=== PATIENT | male | born 1960 | race Caucasian/White ===

== ENCOUNTER 2018-11-26 11:09 | Emergency (ER) | payer MEDICAID ==
[2018-11-26 11:16] VITALS: BP 140/91
--- NOTE | 2018-11-27 10:44 | ED ---
Lower Extremity - HPI Summary HPI Summary: This patient is a 58-year-old male who presents to the ED after a fall down the stairs 4 days ago. Patient states he was walking down the stairs, tripped and lost his balance and is now endorsing pain to the left ankle and foot. Over the past 4 days, the area has been becoming more swollen as well as ecchymotic. Patient remains ambulatory, however with discomfort. Most of the pain is to the dorsum of the foot as well as to the plantar surface of the foot, however radiates up into the ankle. Denies any pain to the lower extremity otherwise denies any pain to the knee. He has been taking Tylenol at home without relief. He has not elevated the area or ice the area. - History of Current Complaint Chief Complaint: EDExtremityLower Stated Complaint: LEFT FOOT INJURY Time Seen by Provider: 11/26/18 11:48 Hx Obtained From: Patient Mechanism Of Injury: Twisted Onset of Pain: Minutes Onset/Duration: Minutes Severity Initially: Moderate Severity Currently: Moderate Pain Intensity: 9 Pain Scale Used: 0-10 Numeric Timing: Constant Location: Is Discrete @ - left ankle and foot pain Character Of Pain: Aching Associated Signs And Symptoms: Positive: Swelling, Bruising. Negative: Redness Aggravating Factor(s): Standing, Ambulation Alleviating Factor(s): Rest Able to Bear Weight: No - Risk Factors Gout Risk Factors: Negative DVT Risk Factors: Negative Septic Arthritis Risk Factor: Negative - Allergies/Home Medications Allergies/Adverse Reactions: Allergies Allergy/AdvReac Type Severity Reaction Status Date / Time No Known Allergies Allergy Verified 11/26/18 11:15 Home Medications: Home Medications Levothyroxine TAB* [Synthroid TAB*] 125 mcg PO DAILY 11/26/18 [History Confirmed 11/26/18] Quetiapine Fumarate 2 tab PO DAILY 11/26/18 [History Confirmed 11/26/18] Venlafaxine CAP (NF) [Effexor CAP (NF)] 3 tab PO DAILY 11/26/18 [History Confirmed 11/26/18] PMH/Surg Hx/FS Hx/Imm Hx Previously Healthy: Yes - Immunization History Hx Pertussis Vaccination: No Immunizations Up to Date: Yes Infectious Disease History: No Infectious Disease History: Denies: Traveled Outside the [place] in Last 30 Days - Social History Occupation: Unemployed Lives: Alone Alcohol Use: None Hx Substance Use: No Substance Use Type: Reports: None Hx Tobacco Use: Yes Smoking Status (MU): Heavy Every Day Tobacco Smoker Review of Systems Negative: Fever, Chills, Fatigue, Skin Diaphoresis Negative: Palpitations, Chest Pain Negative: Shortness Of Breath, Cough Genitourinary: Negative Positive: no symptoms reported, see HPI Positive: Arthralgia, Myalgia Positive: Bruising All Other Systems Reviewed And Are Negative: Yes Physical Exam Triage Information Reviewed: Yes Vital Signs On Initial Exam: Initial Vitals Temp Pulse Resp BP Pulse Ox 99.4 F 86 14 140/91 98 11/26/18 11:12 11/26/18 11:12 11/26/18 11:12 11/26/18 11:12 11/26/18 11:12 Vital Signs Reviewed: Yes Appearance: Positive: Well-Appearing, Well-Nourished Skin: Positive: Warm, Skin Color Reflects Adequate Perfusion, Other - ecchymosis Head/Face: Positive: Normal Head/Face Inspection Eyes: Positive: EOMI, BAKARI, Conjunctiva Clear Neck: Positive: Supple, No Lymphadenopathy Respiratory/Lung Sounds: Positive: Clear to Auscultation, Breath Sounds Present Cardiovascular: Positive: RRR, Pulses are Symmetrical in both Upper and Lower Extremities Musculoskeletal: Positive: Normal, Strength/ROM Intact Neurological: Positive: Speech Normal Psychiatric: Positive: Affect/Mood Appropriate AVPU Assessment: Alert Procedures - Sedation Patient Received Moderate/Deep Sedation with Procedure: No Diagnostics - Vital Signs Vital Signs Temp Pulse Resp BP Pulse Ox 11/26/18 11:12 99.4 F 86 14 140/91 98 - Laboratory Lab Statement: Any lab studies that have been ordered have been reviewed, and results considered in the medical decision making process. Lower Extremity Course/Dx - Course Course Of Treatment: During his course of treatment, the patient is evaluated for left ankle and foot pain. On physical examination, there is a significant amount of swelling and ecchymosis to the area over the dorsum of the foot including the toes. Denies any pain to the toes on palpation. Patient is able to flex and extend at the foot, however with discomfort. There is swelling to the ankle as well as to the dorsum of the foot with ecchymosis to the dorsum of the foot. No pain to the plantar surface of the foot. Mild tenderness to medial lateral portions of the ankle. X-ray obtained which shows: IMPRESSION: Fracture through the base of the second metatarsal with Lisfranc type injury. The left ankle is unremarkable. Discussed case with Dr. Sesay, orthopedics. Dr. Sesay recommends posterior splint with a use lab. Plaster U slab splint with posterior walking applied. Patient will remain nonweightbearing. Crutches given. Encouraged ibuprofen and elevation as much as possible. - Diagnoses Differential Diagnosis/HQI/PQRI: Positive: Contusion, Dislocation, Fracture ( Closed) Provider Diagnoses: Bilateral malleolar fractures - Physician Notifications Discussed Care Of Patient With: Alee Sesay Instructed by Provider To: Have Pt Call For Appt. - will f/u in ortho office Discharge ED - Sign-Out/Discharge Documenting (check all that apply): Patient Departure - Discharge Plan Condition: Good Disposition: HOME Patient Education Materials: Foot Fracture in Adults (ED) Referrals: Alee Sesay MD [Medical Doctor] - No Primary Care Phys,NOPCP [Primary Care Provider] - Additional Instructions: Please call ortho office today to make an appt elevate in the air as high as you can non weight bearing use crutches ibpurofen 600mg three times daily for swelling - Billing Disposition and Condition Condition: GOOD Disposition: Home
== END 2018-11-26 15:05 | disposition home or self-care (01) ==
LOC: ED 11:09
DX: S92.322A Displaced fracture of second metatarsal bone, left foot, initial encounter for closed fracture (principal); S82.892A Other fracture of left lower leg, initial encounter for closed fracture; Z79.899 Other long term (current) drug therapy; W10.9XXA Fall (on) (from) unspecified stairs and steps, initial encounter; Y92.9 Unspecified place or not applicable; F17.200 Nicotine dependence, unspecified, uncomplicated
CPT/HCPCS: 99282

== ENCOUNTER → 2018-12-10 07:36 | Day surgery (SDC) | payer MEDICAID ==
[~2018-12-10 07:36] MED LIST: Acetaminophen TAB* 325 MG PO SCH; Atracurium* 10 MG/ML 10 ML VIAL ONE; Bisacodyl SUPP* 10 MG SUPP PR PRN; Buffered Lidocaine 1% SYRIN* 1 ML/SYRINGE INTRADERM ONE; Bupivacaine 0.5%* 50 ML MDV VIAL ONE; Cyclobenzaprine TAB* 10 MG PO PRN; Dexamethasone IV* 4 MG/ML 1 ML (4 MG) IV SLOW PU ONE; Dexamethasone IV* 4 MG/ML 1 ML (4 MG) ONE; DiMENhydriNATE IV* 50 MG/ML VIAL IV PUSH PRN; Docusate CAP* 100 MG PO SCH; Famotidine IV* 10 MG/ML 2 ML (20 mg) IV ONE; Famotidine IV* 10 MG/ML 2 ML (20 mg) ONE; Glycopyrrolate IV* 0.2 MG/ML 1 ML VIAL ONE; HYDROmorphone INJ1* 1 MG/ML SYRINGE IV PRN; Ibuprofen TAB* 200 MG PO PRN; Ketorolac INJ* 30 MG/ML 1 ML VIAL ONE; Lactated Ringers 1000 ML Bag* 1,000 ML IV SCH; Levothyroxine TAB* 125 MCG TAB PO SCH; Lidocaine 2% PF * 5 ML VIAL ONE; Magnesium Hydroxide LIQ* 30 ML UDC PO PRN; Magnesium Hydroxide LIQ* 30 ML UDC PO SCH; Midazolam* 1 MG/ML 5 ML VIAL (5 MG) ONE; Morphine INJ* 2 MG/ML 1 ML SYRINGE (TWO MG - NEW SYRINGE VERSION) IV PRN; Naloxone* 0.4 MG/ML 1 ML VIAL IV PRN; Ondansetron INJ* 2 MG/ML VIAL IV PRN; Ondansetron INJ* 2 MG/ML VIAL ONE; Ondansetron ODT TAB* 4 MG PO PRN; Propofol* 10 MG/ML 20 ML BTL ONE; Rivaroxaban TAB(*) 10 MG PO SCH; SEROQUEL PO SCH; Venlafaxine CAP (NF) 75 MG TAB PO SCH; Vitamin THERAPEUTIC TAB PO SCH; ceFAZolin 1 GM ADVAN(*) 1 GM in NS 0.9% 50 ML* 50 ML IVPB SCH; ceFAZolin 2 GM PREMIX in ORs 2 GM/50 ML BAG ONE; diPHENhydraMINE IV* 50 MG/ML 1 ml VIAL (BENADRYL) IV PRN; diPHENhydraMINE PO* 25 MG PO PRN; fentaNYL* 50 MCG/ML 2 ML VIAL (100 MCG VIAL) IV PRN; fentaNYL* 50 MCG/ML 5 ML VIAL (250 MCG VIAL) ONE; oxyCODONE TAB* 5 MG TAB PO PRN; oxyCODONE/Acetamin 5/325 MG* TAB PO PRN; traMADol TAB* 50 MG PO PRN; traZODone TAB* 50 MG TAB PO PRN
[2018-12-10 13:07] VITALS: BP 143/96
--- NOTE | 2018-12-10 15:07 | OP ---
Operative Report - Blank - Operative Report Date of Operation: 12/10/18 Note: PATIENT: Brant Dyer DATE OF : 1960 DATE OF SURGERY: 12/10/2018 SURGEON: Lane Bhandari MD STAINED GLASS WINDOW DESIGNER: LISY Cardoso, whos assistance was necessary for positioning, retraction, help with instrumentation, and closure. ANESTHESIOLOGIST: Dr. Flores PREOPERATIVE DIAGNOSIS: Left foot Lisfranc injury with 2nd TMT joint fracture/ dislocation, 2nd metatarsal fracture, 3rd metatarsal fracture, 4th metatarsal fracture, and middle cuneiform fracture. POSTOPERATIVE DIAGNOSIS: Left foot Lisfranc injury with 2nd TMT joint fracture/ dislocation, 2nd metatarsal fracture, 3rd metatarsal fracture, 4th metatarsal fracture, and middle cuneiform fracture. OPERATION: 1. Left foot open reduction and internal fixation of the 2nd TMT joint 2. Left foot open reduction and internal fixation of the 2nd metatarsal base fracture 3. Left foot open reduction and internal fixation of the middle cuneiform fracture 4. Left foot closed treatment of 3rd metatarsal fracture 5. Left foot closed treatment of 4th metatarsal fracture ANESTHESIA: General IMPLANTS: Arthrex CFS plate and screws. Arthrex 4.0mm cannulated screw. TOURNIQUET TIME: Less than 2 hours with a well padded thigh tourniquet at 250 mmHg SPECIMENS: none ESTIMATED BLOOD LOSS: minimal COMPLICATIONS: none STATUS: Stable from the operating room to the recovery room and then home. INDICATIONS FOR PROCEDURE: Brant sustained a fall and left foot injury as above. Both operative and non operative treatment alternatives were reviewed. We did discuss both ORIF versus fusion and decided to make this decision based on the extent of the second TMT joint damage intraoperatively. Further, the nature and risks of surgery were reviewed in careful detail, in the office as well as the pre- operative holding area. Our discussions regarding the risks of surgery included , but were not limited to, infection, wound problems, nerve injury, neuroma, RSD , persistent symptoms, blood clot, fracture, post-traumatic arthritis, hardware pain, need for further surgery, malunion, nonunion, persistent midfoot instability, failure of the surgery, and even the remote chance of catastrophic complication, including loss of limb. DESCRIPTION OF PROCEDURE: The patient was seen in the preoperative holding unit and informed written consent was obtained. The appropriate extremity was marked. The patient was then brought to the operating room and carefully positioned on the operating room table. Anesthesia was induced. All bony prominences were padded with great care. A chlorhexidine based pre-scrub was performed followed by a chloraprep prep and drape in standard sterile fashion. A surgical safety pause was then conducted in which we confirmed the appropriate patient, extremity, planned procedure, availability of equipment, indication and administration of prophylactic antibiotics, and DVT prophylaxis in the form of a compression boot on the non-surgical extremity. We began with an Esmarch exsanguination of the limb and inflated the tourniquet to 250 mmHg. I utilized a longitudinal incision centered at the base of the first and second metatarsals. I carefully dissected down through the soft tissues with great care taken to protect the superficial and deep neurovascular structures. The deep neurovascular bundle was visualized and carefully protected throughout the procedure. I then exposed the first and second tarsometatarsal joints. There was some avulsion of the capsule at the dorsal first TMT joint, but medially, the capsule was intact. The second TMT joint was grossly unstable and subluxated. I exposed the fractures at the base of the second metatarsal and at the middle cuneiform. The joint surface actually looked better than I expected, therefore, decided to move forward with an ORIF. The fractures and the second TMT joint were reduced. A plate was then chosen and contoured to fit the dorsum of the 2nd TMT joint. Ahis was held provisionally with olive wires and then 4 screws were placed into the 2nd metatarsal and middle cuneiform , fixating both the second metatarsal fracture and middle cuneiform fractures, as well as holding the second TMT joint reduced. A large pointed reduction clamp was used to reduce the second metatarsal base to the medial cuneiform, thus closing down the Lisfranc interval. A separate incision was made medially and a guidewire for a 4.0 mm cannulated screw was driven from the medial cuneiform through the base of the second metatarsal under fluoroscopic guidance. This was measured and then overdrilled with a cannulated drill. A 4.0 mm cannulated screw was then placed over the guidewire. The pointed reduction clamp was then removed and the joints and fracture were held well reduced by the hardware. Fluoroscopy was again used to confirm this. I examined the intercuneiform joints, and did not appreciate any instability. Fluoroscopy was then used to image the third and fourth metatarsal base fractures, which appeared well reduced and without any correlated joint instability. Therefore, I decided to treat the third and fourth metatarsal base fractures in a closed manner. Final fluoroscopic images were obtained. At this point, we irrigated copiously and then closed in layers meticulously utilizing 3-0 Monocryl and 3-0 nylon for the skin. A sterile dressing was then applied followed by a splint with the ankle in a neutral position. The patient was then awakened from anesthesia and transferred to the recovery room in stable condition. There were no complications. All needle and sponge counts were correct at the end of the case. ATTESTATION: I attest I was present and scrubbed and performed the critical portions of the procedure myself. POSTOPERATIVE PLAN: Follow up will be in 2 weeks for likely suture removal and postop x-rays. The postoperative plan is to be [id number] for 2 months , then weight-bearing as tolerated in a boot between months 2-3, and then into regular shoes at 3 months postop.
== END | disposition home or self-care (01) ==
LOC: OR 07:36
PROVIDERS: ATTEND Orthopaedic Surgery
DX: S92.322A Displaced fracture of second metatarsal bone, left foot, initial encounter for closed fracture (principal); S92.332A Displaced fracture of third metatarsal bone, left foot, initial encounter for closed fracture; S92.345A Nondisplaced fracture of fourth metatarsal bone, left foot, initial encounter for closed fracture; S82.65XA Nondisplaced fracture of lateral malleolus of left fibula, initial encounter for closed fracture; W10.9XXA Fall (on) (from) unspecified stairs and steps, initial encounter; Y92.9 Unspecified place or not applicable; E03.9 Hypothyroidism, unspecified; F41.8 Other specified anxiety disorders; E78.00 Pure hypercholesterolemia, unspecified; F17.210 Nicotine dependence, cigarettes, uncomplicated
CPT/HCPCS: 76000; C1713; C1776; J0690; J1100; J1885; J2250; J2405; J2704; J3010; J3490

== ENCOUNTER 2018-12-11 10:53 | Emergency (ER) | payer MEDICAID ==
--- OUTSIDE RECORDS SUMMARY | 2018-12-11 11:18 | XMS REPORT | Continuity of Care Document ---
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 Provider Date Closed fracture of metatarsal bone Lane Bhandari MD Onset: 11/30/2018 Social History Type Date Description Comments Sex Unknown ETOH Use Denies alcohol use Tobacco Use Start: Unknown Patient is a current smoker, smokes every day Smoking Status Reviewed: 11/30/18 Patient is a current smoker, smokes every day Exercise Type/Frequency Exercises sporadically Allergies, Adverse Reactions, Alerts Description No Known Drug Allergies Medications Active Medications SIG Qnty Indications Ordering Provider Date Synthroid 1 by mouth every Unknown 125mcg Tablets day Seroquel Unknown 400mg Tablets Effexor XR Unknown Immunizations Description No Information Available Vital Signs Date Vital Result Comment 11/30/2018 11:37am Height 69 inches 5'9" Weight 175.00 lb Heart Rate 77 /min BP Systolic 140 mmHg BP Diastolic 92 mmHg Respiratory Rate 18 /min Body Temperature 97.6 F Pain Level 9 BMI (Body Mass Index) 25.8 kg/m2 Results Description No Information Available Procedures Description No Information Available Medical Devices Description No Information Available Encounters Type Date Location Provider Dx Diagnosis Office Visit 11/30/[address] [facility] [address] Bhandari S92.322A Disp fx of second 11:15a at [place] metatarsal bone, left foot, init Assessments Date Code Description Provider 11/30/2018 S92.322A Displaced fracture of second metatarsal bone, Lane Bhandari MD left foot, initial encounter for closed fracture Plan of Treatment Future Appointment(s):01/18/2019 8:00 am - Traci Ann MD [facility]11/30/2018 - Lane Bhandari [id number] Displaced fracture of second metatarsal bone, left foot, initial encounter for closed fractureNew Xrays:Foot Left 3+ VWS, Ordered: 11/30/18CT Extremity Lower Left Wo , Ordered: 11/30/18Follow up:Follow Up: TBD Functional Status Description No Information Available Mental Status Description No Information Available Referrals Description No Information Available
--- OUTSIDE RECORDS SUMMARY | 2018-12-11 11:18 | XMS REPORT | Continuity of Care Document ---
:1960 External Reference #:[id number] Author Name Lane Bhandari MD (transmitted by agent of provider Sarya Lowe) Address [address] [place] [id number] Care Team Providers Name Role Phone Floyd Arriaga MD - Family Medicine Care Team Information Dietary Tech Problems Active Problems Provider Date Closed fracture of lateral malleolus Lane Bhandari MD Onset: 12/07/2018 Closed fracture of metatarsal bone Lane Bhandari MD Onset: 11/30/2018 Social History Type Date Description Comments Sex Unknown ETOH Use Denies alcohol use Tobacco Use Start: Unknown Patient is a current smoker, smokes every day Smoking Status Reviewed: 12/07/18 Patient is a current smoker, smokes every day Exercise Type/Frequency Exercises sporadically Allergies, Adverse Reactions, Alerts Description No Known Drug Allergies Medications Active Medications SIG Qnty Indications Ordering Provider Date Roller Walker with hand brakes S92.322A Lane Bhandari MD 12/07/2018 Misc and seat ht: 69" wt: 175 S92.332A Synthroid 125mcg 1 by mouth every day Unknown Tablets Seroquel 400mg Unknown Tablets Effexor XR Unknown Immunizations Description No Information Available Vital Signs Date Vital Result Comment 12/07/2018 8:16am Height 69 inches 5'9" Weight 175.00 lb stated Heart Rate 76 /min BP Systolic 138 mmHg BP Diastolic 80 mmHg Respiratory Rate 14 /min Pain Level 8 BMI (Body Mass Index) 25.8 kg/m2 11/30/2018 11:37am Height 69 inches 5'9" Weight 175.00 lb Heart Rate 77 /min BP Systolic 140 mmHg BP Diastolic 92 mmHg Respiratory Rate 18 /min Body Temperature 97.6 F Pain Level 9 BMI (Body Mass Index) 25.8 kg/m2 Results Description No Information Available Procedures Description No Information Available Medical Devices Description No Information Available Encounters Description No Information Available Assessments Date Code Description Provider 12/07/2018 S92.322A Displaced fracture of second metatarsal bone, Lane Bhandari MD left foot, initial encounter for closed fracture 12/07/2018 S92.332A Displaced fracture of third metatarsal bone, Lane Bhandari MD left foot, initial encounter for closed fracture 12/07/2018 S92.345A Nondisplaced fracture of fourth metatarsal Lane Bhandari MD bone, left foot, initial encounter for closed fracture 12/07/2018 S82.65xA Nondisplaced fracture of lateral malleolus of Lane Bhandrai MD left fibula, initial encounter for closed fracture 11/30/2018 S92.322A Displaced fracture of second metatarsal bone, Lane Bhandari MD left foot, initial encounter for closed fracture Plan of Treatment Future Appointment(s):12/29/2018 8:30 am - Lane Bhandari MD at [facility] at [id number]/10/2018 12:15 pm - MARGRET Cardoso at [facility]12/10/2018 12:15 pm - Lane Bhandari MD at [facility]01/18/2019 8:00 am - Traci Ann MD at [facility]12/07/2018 - ZAHIDA [id number] Displaced fracture of second metatarsal bone, left foot, initial encounter for closed fractureNew Medication:Roller Walker - with hand brakes and seat ht: 69" wt: 175Follow up:Follow Up: 13-15 days [id number] Displaced fracture of third metatarsal bone, left foot, initial encounter for closed fractureNew Medication: Roller Walker - with hand brakes and seat ht: 69" wt: 175S92.345A Nondisplaced fracture of fourth metatarsal bone, left foot, initial encounter for closed [id number] Nondisplaced fracture of lateral malleolus of left fibula, initial encounter for closed fracture Functional Status Description No Information Available Mental Status Description No Information Available Referrals Description No Information Available
--- OUTSIDE RECORDS SUMMARY | 2018-12-11 11:18 | XMS REPORT | Continuity of Care Document ---
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 Problems Provider Date Closed fracture of lateral malleolus Lane Bhandari MD Onset: 12/07/2018 Closed fracture of metatarsal bone Lane Bhandari MD Onset: 11/30/2018 Social History Type Date Description Comments Sex Unknown ETOH Use Denies alcohol use Tobacco Use Start: Unknown Patient is a current smoker, smokes every day Smoking Status Reviewed: 12/11/18 Patient is a current smoker, smokes every day Exercise Type/Frequency Exercises sporadically Allergies, Adverse Reactions, Alerts Description No Known Drug Allergies Medications Active Medications SIG Qnty Indications Ordering Provider Date Oxycodone HCL [address] tabs [address] mouth [address] Bhandari MD 12/10/2018 5mg every 6 hours as Tablets needed Xarelto take one tab per 30tabs Lane Bhandari MD 12/10/2018 10mg Tablets day Roller Walker with hand brakes S92.322A Lane Bhandari MD 12/07/2018 Misc and seat ht: 69" wt: 175 S92.332A Synthroid 125mcg 1 by mouth every day Unknown 00/ 0000 Tablets Seroquel 400mg Unknown Tablets Effexor XR Unknown Ibuprofen Unknown Immunizations Description No Information Available Vital Signs Date Vital Result Comment 12/11/2018 9:22am Height 69 inches 5'9" Weight 175.00 lb BP Systolic 140 mmHg BP Diastolic 84 mmHg Body Temperature 98.0 F BMI (Body Mass Index) 25.8 kg/m2 12/07/2018 8:16am Height 69 inches 5'9" Weight 175.00 lb stated Heart Rate 76 /min BP Systolic 138 mmHg BP Diastolic 80 mmHg Respiratory Rate 14 /min Pain Level 8 BMI (Body Mass Index) 25.8 kg/m2 Results Description No Information Available Procedures Date Code Description Status 12/11/2018 58073 application of short leg splint Completed 12/10/2018 63028 Dislocation Tarsometatarsal JT W/Wo Fixation Open TX Completed 12/10/2018 89044 Open TX Metatarsal FX,Incl Intl Fixation When Performed Completed 12/10/2018 99956 FX Metatarsal Care Completed 12/10/2018 93615 FX Metatarsal Care Completed 12/10/2018 07236 Open TX Tarsal Bone FX(Except Talus & Calcaneus) Incl Completed Fixation Medical Devices Description No Information Available Encounters Type Date Location Provider Dx Diagnosis Office Visit 11/30/[address] [facility] [address] Bhandari, S92.322A Disp fx of second 11:15a at [place] metatarsal bone, left foot, init Assessments Date Code Description Provider 12/11/2018 S93.325A Dislocation of tarsometatarsal joint of left Lane Bhandari MD foot, initial encounter 12/11/2018 S92.322A Displaced fracture of second metatarsal bone, Lane Bhandari MD left foot, initial encounter for closed fracture 12/11/2018 S92.332A Displaced fracture of third metatarsal bone, Lane Bhandari MD left foot, initial encounter for closed fracture 12/11/2018 S92.345A Nondisplaced fracture of fourth metatarsal Lane Bhandari MD bone, left foot, initial encounter for closed fracture 12/11/2018 S92.232A Displaced fracture of intermediate cuneiform of Lane Bhandari MD left foot, initial encounter for closed fracture 12/11/2018 S82.65xA Nondisplaced fracture of lateral malleolus of Lane Bhandari MD left fibula, initial encounter for closed fracture 12/10/2018 S93.325A Dislocation of tarsometatarsal joint of left Lane Bhandari MD foot, initial encounter 12/10/2018 S92.322A Displaced fracture of second metatarsal bone, Lane Bhandari MD left foot, initial encounter for closed fracture 12/10/2018 S92.332A Displaced fracture of third metatarsal bone, Lane Bhandari MD left foot, initial encounter for closed fracture 12/10/2018 S92.345A Nondisplaced fracture of fourth metatarsal Lane Bhandari MD bone, left foot, initial encounter for closed fracture 12/10/2018 S92.232A Displaced fracture of intermediate cuneiform of Lane Bhandari MD left foot, initial encounter for closed fracture 12/07/2018 S92.322A Displaced fracture of second metatarsal bone, Lane Bhandari MD left foot, initial encounter for closed fracture 12/07/2018 S92.332A Displaced fracture of third metatarsal bone, Lane Bhandari MD left foot, initial encounter for closed fracture 12/07/2018 S92.345A Nondisplaced fracture of fourth metatarsal Lane Bhandari MD bone, left foot, initial encounter for closed fracture 12/07/2018 S82.65xA Nondisplaced fracture of lateral malleolus of Lane Bhandari MD left fibula, initial encounter for closed fracture 11/30/2018 S92.322A Displaced fracture of second metatarsal bone, Lane Bhandari MD left foot, initial encounter for closed fracture Plan of Treatment Future Appointment(s):12/23/2018 2:00 pm - Lane Bhandari MD at [facility] at Edfmgt7101/01/2019 8:30 am - Lane Bhandari MD at [facility] at Ggqssi4701/18/2019 8:00 am - Traci Ann MD at [facility]12/11/2018 - ZAHIDA [id number] Dislocation of tarsometatarsal joint of left foot, initial encounterFollow up:To [id number] Displaced fracture of second metatarsal bone, left foot, initial encounter for closed [id number] Displaced fracture of third metatarsal bone, left foot, initial encounter for closed [id number] Nondisplaced fracture of fourth metatarsal bone, left foot, initial encounter for closed [id number] Displaced fracture of intermediate cuneiform of left foot, initial encounter for closed [id number] Nondisplaced fracture of lateral malleolus of left fibula, initial encounter for closed fracture Functional Status Description No Information Available Mental Status Description No Information Available Referrals Description No Information Available
[2018-12-11] MEDS ORDERED: HYDROcodone/ACETAMIN 5-325 MG* 1 TAB PO ONE ×2 (11:57→14:37)
--- NOTE | 2018-12-11 12:10 | ED ---
Lower Extremity - HPI Summary HPI Summary: This patient is a 58-year-old male with a history of ORIF secondary TMT surgery yesterday by Dr. Wilder presenting to the ED with worsening pain and symptoms and unable to care for himself at home, ambulatory dysfunction. He was sent here by ortho for admission for placement. Pt has no significant PMHx. States he was to start taking a blood thinner, but was told to DC after the wound began to bleed. Pt states he is unable to care for himself at home and was sent in by ortho for placement to rehab facility. Also c/o out of pain management and unable to obtain. 20/10 pain scale per patient. - History of Current Complaint Chief Complaint: EDExtremityLower Stated Complaint: PAIN IN LEFT FOOT AFTER SURGERY PER PT Time Seen by Provider: 12/11/18 11:02 Hx Obtained From: Patient Onset of Pain: Days Onset/Duration: Days Severity Initially: Severe Severity Currently: Severe Pain Intensity: 10 Pain Scale Used: 0-10 Numeric Timing: Constant Location: Is Discrete @ - left foot Associated Signs And Symptoms: Positive: Negative Aggravating Factor(s): Standing, Ambulation Alleviating Factor(s): Rest Able to Bear Weight: No - Risk Factors Gout Risk Factors: Male DVT Risk Factors: Recent Surgery - Allergies/Home Medications Allergies/Adverse Reactions: Allergies Allergy/AdvReac Type Severity Reaction Status Date / Time No Known Allergies Allergy Verified 12/10/18 08:27 PMH/Surg Hx/FS Hx/Imm Hx Previously Healthy: Yes Endocrine/Hematology History: Reports: Hx Thyroid Disease - hypo Respiratory History: Denies: Hx Sleep Apnea - appt on Dec.19 WITH pulmonary GI History: Reports: Hx Hiatal Hernia - for years, Other GI Disorders - gets esophagus stretched Musculoskeletal History: Reports: Hx Arthritis - fingers, Other Musculoskeletal History - degenerative bone disease Sensory History: Reports: Hx Contacts or Glasses - for reading Denies: Hx Hearing Aid Opthamlomology History: Reports: Hx Contacts or Glasses - for reading Neurological History: Reports: Other Neuro Impairments/Disorders - pinched nerve lower left and right hip Psychiatric History: Reports: Hx Anxiety, Hx Depression - Cancer History Hx Chemotherapy: No - Surgical History Hx Anesthesia Reactions: No Infectious Disease History: No Infectious Disease History: Denies: Traveled Outside the [place] in Last 30 Days - Social History Alcohol Use: None Hx Substance Use: No Substance Use Type: Reports: None Hx Tobacco Use: Yes Smoking Status (MU): Heavy Every Day Tobacco Smoker Amount Used/How Often: 1ppd 40 years Review of Systems Negative: Fever, Chills, Fatigue, Skin Diaphoresis Negative: Palpitations, Chest Pain Negative: Shortness Of Breath, Cough Negative: Arthralgia, Myalgia Positive: Other - unable to visualize wound Neurological: Negative All Other Systems Reviewed And Are Negative: Yes Physical Exam Triage Information Reviewed: Yes Vital Signs On Initial Exam: Initial Vitals Temp Pulse Resp BP Pulse Ox 96.9 F 89 16 129/84 99 12/11/18 10:58 12/11/18 10:58 12/11/18 10:58 12/11/18 10:58 12/11/18 10:58 Vital Signs Reviewed: Yes Appearance: Positive: Well-Appearing, Well-Nourished, Pain Distress Skin: Positive: Skin Color Reflects Adequate Perfusion Head/Face: Positive: Normal Head/Face Inspection Eyes: Positive: BAKARI, Conjunctiva Clear Respiratory/Lung Sounds: Positive: Clear to Auscultation, Breath Sounds Present Cardiovascular: Positive: RRR, Pulses are Symmetrical in both Upper and Lower Extremities Musculoskeletal: Positive: Pain @ - left foot s/p op Psychiatric: Positive: Normal, Affect/Mood Appropriate Procedures - Sedation Patient Received Moderate/Deep Sedation with Procedure: No Diagnostics - Vital Signs Vital Signs Temp Pulse Resp BP Pulse Ox 12/11/18 10:58 96.9 F 89 16 129/84 99 - Laboratory Result Diagrams: 12/11/18 12:21 12/11/18 12:21 Lab Statement: Any lab studies that have been ordered have been reviewed, and results considered in the medical decision making process. Lower Extremity Course/Dx - Course Course Of Treatment: Pt was evaluated for placement to rehab facility s/p postop day 2. He is given pain control in the ED with good relief. Discussed case with social work who found him placement at [facility]. Discussed with Jeaneth mccoy PA who recommends continued pain control at that facility. Pt was discharged with recommendation to continue pain management at [facility]. Wheelchair van called and awaiting transport. - Diagnoses Provider Diagnoses: Foot pain, left Discharge ED - Sign-Out/Discharge Documenting (check all that apply): Patient Departure - Discharge Plan Condition: Stable Disposition: [facility] Patient Education Materials: Weakness (ED) Referrals: Lane Bhandari MD [Medical Doctor] - No Primary Care Phys,NOPCP [Primary Care Provider] - Additional Instructions: Please be advised per Orthopedics Dr. Wilder there is a prescription for oxycodone 5 mg by mouth every 6 hours 4 days. Prescription was placed last night. - Billing Disposition and Condition Condition: STABLE Disposition: Residential Facility
[2018-12-11 12:30] LABS: ABS Basophils 0.1 10^3/ul (0-0.2); ABS Eosinophils 0.1 10^3/ul (0-0.6); ABS Lymphocytes 2.2 10^3/ul (1.0-4.8); ABS Monocytes 0.7 10^3/ul (0-0.8); ABS Neutrophils 13.7 10^3/ul (1.5-7.7); Eosinophil % 0.4 %; Hematocrit 38 % (42-52); Hemoglobin 12.6 g/dL (14.0-18.0); Lymphocyte % 13.4 %; Mean Corpuscular HGB Conc 34 g/dL (31-36); Mean Corpuscular Hemoglobin 32 pg (27-31); Mean Corpuscular Volume 94 fL (80-94); Mean Platelet Volume 5.9 fL (7.4-10.4); Platelet Count 350 10^3/uL (150-450); Red Blood Count 3.97 10^6 /uL (4.18-5.48); Red Cell Distribution Width 16 % (10-15); White Blood Count 16.8 10^3/uL (3.5-10.8)
[2018-12-11 12:38] LABS: INR 1.21 (0.82-1.09)
[2018-12-11 12:52] LABS: Albumin 3.9 g/dL (3.2-5.2); Albumin/Globulin Ratio 1.6 (1-3); BUN/Creatinine Ratio 14.3 (8-20); Calcium 9.3 mg/dL (8.6-10.3); EGFR African American 94.4 (>60); Globulin 2.5 g/dL (2-4); Potassium 3.4 mmol/L (3.5-5.0); Total Bilirubin 0.5 mg/dL (0.2-1.0); Total Protein 6.4 g/dL (6.4-8.9)
[2018-12-11 17:09] VITALS: BP 104/66
== END 2018-12-11 17:02 ==
LOC: ED 10:53
DX: M79.672 Pain in left foot (principal); E03.9 Hypothyroidism, unspecified; F41.9 Anxiety disorder, unspecified; F32.9 Major depressive disorder, single episode, unspecified; F17.200 Nicotine dependence, unspecified, uncomplicated; Z79.899 Other long term (current) drug therapy
CPT/HCPCS: 36415; 80053; 85025; 85610; 99283

== ENCOUNTER 2019-01-19 13:00 | Observation (INO) | payer OTHER ==
[~2019-01-19 13:00] MED LIST changes: -Acetaminophen TAB* 325 MG PO SCH; -Atracurium* 10 MG/ML 10 ML VIAL ONE; -Bisacodyl SUPP* 10 MG SUPP PR PRN; -Bupivacaine 0.5%* 50 ML MDV VIAL ONE; -Cyclobenzaprine TAB* 10 MG PO PRN; -Dexamethasone IV* 4 MG/ML 1 ML (4 MG) IV SLOW PU ONE; -Dexamethasone IV* 4 MG/ML 1 ML (4 MG) ONE; -DiMENhydriNATE IV* 50 MG/ML VIAL IV PUSH PRN; -Docusate CAP* 100 MG PO SCH; -Famotidine IV* 10 MG/ML 2 ML (20 mg) IV ONE; -Famotidine IV* 10 MG/ML 2 ML (20 mg) ONE; -Glycopyrrolate IV* 0.2 MG/ML 1 ML VIAL ONE; -HYDROmorphone INJ1* 1 MG/ML SYRINGE IV PRN; -Ibuprofen TAB* 200 MG PO PRN; -Ketorolac INJ* 30 MG/ML 1 ML VIAL ONE; -Levothyroxine TAB* 125 MCG TAB PO SCH; -Lidocaine 2% PF * 5 ML VIAL ONE; -Magnesium Hydroxide LIQ* 30 ML UDC PO PRN; -Magnesium Hydroxide LIQ* 30 ML UDC PO SCH; -Midazolam* 1 MG/ML 5 ML VIAL (5 MG) ONE; -Morphine INJ* 2 MG/ML 1 ML SYRINGE (TWO MG - NEW SYRINGE VERSION) IV PRN; -Naloxone* 0.4 MG/ML 1 ML VIAL IV PRN; -Ondansetron INJ* 2 MG/ML VIAL IV PRN; -Ondansetron INJ* 2 MG/ML VIAL ONE; -Ondansetron ODT TAB* 4 MG PO PRN; -Propofol* 10 MG/ML 20 ML BTL ONE; -Rivaroxaban TAB(*) 10 MG PO SCH; -SEROQUEL PO SCH; -Venlafaxine CAP (NF) 75 MG TAB PO SCH; -Vitamin THERAPEUTIC TAB PO SCH; -ceFAZolin 1 GM ADVAN(*) 1 GM in NS 0.9% 50 ML* 50 ML IVPB SCH; -ceFAZolin 2 GM PREMIX in ORs 2 GM/50 ML BAG ONE; -diPHENhydraMINE IV* 50 MG/ML 1 ml VIAL (BENADRYL) IV PRN; -diPHENhydraMINE PO* 25 MG PO PRN; -fentaNYL* 50 MCG/ML 2 ML VIAL (100 MCG VIAL) IV PRN; -fentaNYL* 50 MCG/ML 5 ML VIAL (250 MCG VIAL) ONE; -oxyCODONE TAB* 5 MG TAB PO PRN; -oxyCODONE/Acetamin 5/325 MG* TAB PO PRN; -traMADol TAB* 50 MG PO PRN; -traZODone TAB* 50 MG TAB PO PRN
[2019-01-19] MEDS ORDERED: Midazolam* 1 MG/ML 2 ML VIAL (2 MG) ONE (14:06)
[2019-01-19] MEDS ORDERED: Propofol* 500 MG/50 ML BTL ONE (14:07)
[2019-01-19] MEDS ORDERED: Lidocaine 2% PF * 5 ML VIAL ONE (14:07)
[2019-01-19] MEDS ORDERED: Propofol* 10 MG/ML 20 ML BTL ONE (14:07)
[2019-01-19] MEDS ORDERED: Buffered Lidocaine 1% SYRIN* 1 ML/SYRINGE INTRADERM ONE (14:16)
[2019-01-19] MEDS ORDERED: ceFAZolin 2 GM PREMIX in ORs 2 GM/50 ML BAG ONE (14:16)
[2019-01-19] MEDS ORDERED: Lidocaine 2% PF* 10 ML AMP ONE (15:04)
[2019-01-19] MEDS ORDERED: Bupivacaine 0.5%* 50 ML MDV VIAL ONE (15:04)
[2019-01-19] MEDS ORDERED: fentaNYL* 50 MCG/ML 2 ML VIAL (100 MCG VIAL) ONE ×2 (15:30→16:19)
[2019-01-19] MEDS ORDERED: Naloxone* 0.4 MG/ML 1 ML VIAL IV PRN (15:52)
[2019-01-19] MEDS ORDERED: Acetaminophen TAB* 325 MG PO PRN (15:52)
[2019-01-19] MEDS ORDERED: DiMENhydriNATE IV* 50 MG/ML VIAL IV PUSH PRN (15:52)
[2019-01-19] MEDS ORDERED: fentaNYL* 50 MCG/ML 2 ML VIAL (100 MCG VIAL) IV PRN (15:52)
[2019-01-19] MEDS ORDERED: Ketorolac INJ* 30 MG/ML 1 ML VIAL ONE (15:53)
[2019-01-19] MEDS ORDERED: Metoclopramide IV* 5 MG/ML 2 ML VIAL ONE (15:53)
[2019-01-19] MEDS ORDERED: Ondansetron INJ* 2 MG/ML VIAL ONE (15:53)
[2019-01-19] MEDS ORDERED: Dexamethasone IV* 4 MG/ML 1 ML (4 MG) ONE (15:53)
[2019-01-19] MEDS ORDERED: diPHENhydraMINE PO* 25 MG PO PRN (16:26)
[2019-01-19] MEDS ORDERED: oxyCODONE TAB* 5 MG TAB PO PRN (16:26)
[2019-01-19] MEDS ORDERED: Magnesium Hydroxide LIQ* 30 ML UDC PO PRN (16:26)
[2019-01-19] MEDS ORDERED: Ondansetron INJ* 2 MG/ML VIAL IV PRN (16:26)
--- NOTE | 2019-01-19 16:27 | OP ---
Operative Report - Blank - Operative Report Date of Operation: 01/19/19 Note: PATIENT: Brant Dyer DATE OF : 1960 DATE OF SURGERY: 01/19/2019 SURGEON: Lane Bhandari MD HEAD SCORER: LISY Cardoso, whos assistance was necessary for positioning, retraction, help with instrumentation, and closure. ANESTHESIOLOGIST: Dr. Ceballos PREOPERATIVE DIAGNOSIS: Left foot surgical wound dehiscence POSTOPERATIVE DIAGNOSIS: Left foot surgical wound dehiscence OPERATION: Left foot irrigation and debridement, removal of deep hardware and placement of a wound VAC ANESTHESIA: General IMPLANTS: none TOURNIQUET TIME: Less than 1 hour with an ankle Esmarch tourniquet. SPECIMENS: Culture swabs to micro ESTIMATED BLOOD LOSS: minimal COMPLICATIONS: none STATUS: Stable from the operating room to the recovery room. INDICATIONS FOR PROCEDURE: Brant had a lisfranc ORIF and has developed wound dehiscence with necrosis at the skin edges. Both operative and non-operative treatment alternatives were reviewed. Further, the nature and risks of surgery were reviewed in careful detail. Our discussions regarding the risks of surgery included, but were not limited to, infection, persistent wound problems, nerve injury, neuroma, RSD, persistent symptoms, blood clot, need for further surgery, failure of the surgery, and even the remote chance of catastrophic complication. DESCRIPTION OF PROCEDURE: The patient was seen in the preoperative holding unit and informed written consent was obtained. The appropriate extremity was marked. The patient was then brought to the operating room and carefully positioned on the operating room table. Anesthesia was induced. All bony prominences were padded with great care. A chlorhexidine based pre-scrub was performed followed by a chloraprep prep and drape in standard sterile fashion. A surgical safety pause was then conducted in which we confirmed the appropriate patient, extremity, planned procedure, availability of equipment, indication and administration of prophylactic antibiotics, and DVT prophylaxis in the form of a compression boot on the non-surgical extremity. I began with an Esmarch exsanguination of the limb and placement of an ankle Esmarch tourniquet. I began by sharply excising the necrotic skin edges with a 15 blade scalpel. I then excised hematoma from the wound. The wound, once thoroughly debrided of necrotic tissue and hematoma tracked down to the plate and screws. Therefore, I decided to remove the plate and screws. Culture swabs were taken and sent to micro. There was no obviously infected tissue. No purulence. The wound was then thoroughly irrigated with sterile saline. The wound measured 4 cm in length by 3 cm in width by 1 cm in depth. It goes down to the periosteum and bone layer. A wound VAC was then placed sterilely. This held good suction. The patient was then awakened from anesthesia and transferred to the recovery room in stable condition. There were no complications. All needle and sponge counts were correct at the end of the case. ATTESTATION: I attest I was present and scrubbed and performed the critical portions of the procedure myself. POSTOPERATIVE PLAN: We will keep him on antibiotics. We'll change the wound VAC every 3 days. He will remain nonweightbearing in an Aircast boot.
[2019-01-19] MEDS ORDERED: oxyCODONE TAB* 5 MG TAB ONE (16:28)
[2019-01-19] MEDS: oxyCODONE TAB* 5 MG TAB PO PRN ×3 (16:31→21:38)
[2019-01-19] MEDS ORDERED: Temazepam CAP* 15 MG PO PRN (16:32)
[2019-01-19] MEDS ORDERED: Lactated Ringers 1000 ML Bag* 1,000 ML IV SCH (17:00)
[2019-01-19] MEDS: Cyclobenzaprine TAB* 10 MG PO PRN (18:28)
[2019-01-19] MEDS: Morphine INJ* 2 MG/ML 1 ML SYRINGE (TWO MG - NEW SYRINGE VERSION) IV PRN (18:28)
[2019-01-19] MEDS: Docusate CAP* 100 MG PO SCH (21:38)
[2019-01-19] MEDS: Aspirin TAB* 325 MG PO SCH (21:38)
[2019-01-19] MEDS: QUEtiapine TAB* 300 MG PO SCH (21:38)
[2019-01-19] MEDS: Ferrous Sulfate TAB* 325 MG PO SCH (21:38)
[2019-01-19] MEDS: Acetaminophen TAB* 325 MG PO SCH (21:40)
[2019-01-19] MEDS: ceFAZolin 1 GM ADVAN(*) 1 GM in NS 0.9% 50 ML* 50 ML IVPB SCH (23:51)
[2019-01-20] MEDS: Acetaminophen TAB* 325 MG PO SCH ×3 (05:15→23:56)
[2019-01-20] MEDS: Levothyroxine TAB* 125 MCG TAB PO SCH (05:16)
[2019-01-20] MEDS: oxyCODONE TAB* 5 MG TAB PO PRN ×4 (05:16→20:22)
[2019-01-20] MEDS: Venlafaxine EXT RELEASE CAP* 75 MG PO SCH (08:20)
[2019-01-20] MEDS: Aspirin TAB* 325 MG PO SCH (08:20)
[2019-01-20] MEDS: Vitamin THERAPEUTIC TAB PO SCH (08:20)
[2019-01-20] MEDS: Ferrous Sulfate TAB* 325 MG PO SCH ×2 (08:20→21:36)
[2019-01-20] MEDS: Docusate CAP* 100 MG PO SCH ×2 (08:20→21:36)
[2019-01-20] MEDS: Cyclobenzaprine TAB* 10 MG PO PRN ×2 (08:21→20:21)
[2019-01-20] MEDS: ceFAZolin 1 GM ADVAN(*) 1 GM in NS 0.9% 50 ML* 50 ML IVPB SCH ×3 (09:03→23:53)
[2019-01-20] MEDS: Morphine INJ* 2 MG/ML 1 ML SYRINGE (TWO MG - NEW SYRINGE VERSION) IV PRN (09:03)
--- NOTE | 2019-01-20 15:57 | PN ---
Progress Note - Progress Note Date of Service: 01/20/19 SOAP: Subjective: []Pt seen at bedside. He feels well without fever, chills, CP, SOB, dizziness. L foot is sore but tolerable pain. Objective: []Gen: NAD, nontoxic appearing LLE: left foot dressing CDI, vac maintains good suction, cap refill less than two seconds distally. Decreased sensation distally consistent with pre-op. Calves supple and nontender Assessment: [Left foot surgical wound dehiscence POD 1 sp Left foot irrigation and debridement, removal of deep hardware and placement of a wound VAC Plan: []NWB LLE Will change wound vac tomorrow with Dr Bhandari No growth to date on cultures, no organisms on gram stain. Continue ancef ASA for DVT prophy Anticipate DC back to [facility] tomorrow Vital Signs Temp 98 F 01/20/19 15:31 Pulse 74 01/20/19 15:31 Resp 18 01/20/19 15:32 BP 123/65 01/20/19 15:31 Pulse Ox 94 01/20/19 15:31 Intake & Output 01/19/19 01/20/19 01/20/19 18:59 06:59 18:59 Intake Total 422 000 6803 Output Total 350 350 Balance 750 268 740 Weight 185 lb Intake: IV Fluids 750 980 LR 750 980 IVPB 58 110 ABX - CEFAZOLIN 58 55 Oral 560 Output: Urine 350 350 Other: Estimated Void Medium # Bowel Movements 0 # Voids 1 Microbiology 01/19/19 16:08 Anaerobic Culture - Preliminary Wound No Growth Day 1 01/19/19 16:08 Gram Stain - Final Foot Left
[2019-01-20] MEDS: QUEtiapine TAB* 300 MG PO SCH (21:37)
[2019-01-21] MEDS: Cyclobenzaprine TAB* 10 MG PO PRN (05:05)
[2019-01-21] MEDS: Acetaminophen TAB* 325 MG PO SCH (05:05)
[2019-01-21] MEDS: oxyCODONE TAB* 5 MG TAB PO PRN ×3 (05:06→12:53)
[2019-01-21] MEDS: Levothyroxine TAB* 125 MCG TAB PO SCH (05:10)
[2019-01-21] MEDS: Aspirin TAB* 325 MG PO SCH (08:42)
[2019-01-21] MEDS: Venlafaxine EXT RELEASE CAP* 75 MG PO SCH (08:42)
[2019-01-21] MEDS: ceFAZolin 1 GM ADVAN(*) 1 GM in NS 0.9% 50 ML* 50 ML IVPB SCH (08:42)
[2019-01-21] MEDS: Docusate CAP* 100 MG PO SCH (08:42)
[2019-01-21] MEDS: Ferrous Sulfate TAB* 325 MG PO SCH (08:43)
[2019-01-21] MEDS: Vitamin THERAPEUTIC TAB PO SCH (08:43)
--- NOTE | 2019-01-21 11:37 | DS ---
Orthopedic Discharge Summary - Discharge Summary Date of Admission:01/19/19 Date of Discharge: 01/21/19 Date of Surgery: 01/19/19 Attending Orthopedic Provider: Dr Bhandari Pre-operative Diagnosis: Left foot surgical wound dehiscence Operative Procedure: [Left foot irrigation and debridement, removal of deep hardware and placement of a wound VAC Disposition of Patient: [facility] Condition of Patient: stable History: OMAIRA GURROLA is a 58 year old M with Left foot surgical wound dehiscence Hospital Course: OMAIRA was admitted to [facility] on 01/19/19. Patient underwent a [Left foot irrigation and debridement, removal of deep hardware and placement of a wound VAC] without complication followed by a brief recovery in PACU and transfer to the Short Stay Surgical Unit in stable condition. Our physical therapy service also participated in this patients care. Post-op day 1: patient was alert and in no acute distress. Dressing was clean, dry and intact. Vac suction was maintained. Operative extremity NVI distally. Post-op day two: Pt felt well without foot pain, denied fever, chills , CP, SOB, dizziness or nausea. Dressing CDI with good vac suction, able to f/e MTPs, sensation intact to light touch distally and cap refill less than two seconds distally. No growth on cultures to date. Discussed wound vac with wen Ramirez for first vac change at [facility] tomorrow 01/22/19. Patient was deemed to be medically and orthopedically stable for discharge. He will need to be on doxycycline 100 mg bid for 1 week, if any culture growth will gear abx towards results. FU Dr Bhandari within 1 week. Home Medications Medication Instructions Recorded Confirmed Type Levothyroxine TAB* [Synthroid 125 125 mcg PO QAM 11/26/18 01/19/19 History MCG TAB*] Ibuprofen TAB* [Advil TAB*] 800 mg PO BID PRN 12/08/18 01/19/19 History Acetaminophen Extra Strength 500 mg PO TID PRN 12/10/18 01/19/19 History Seroquel 100 MG * 300 mg PO BEDTIME 12/10/18 01/19/19 History oxyCODONE TAB* [Roxycodone TAB 5 5 mg PO Q6H PRN 01/18/19 01/19/19 History mg*] Venlafaxine EXT RELEASE CAP* 225 mg PO QAM 01/19/19 01/19/19 History [Effexor Xr CAP*] Acetaminophen TAB* [Tylenol TAB*] 975 mg PO Q8HR tab 01/21/19 Rx Aspirin TAB* [Aspirin 325 MG TAB*] 325 mg PO DAILY #0 tab 01/21/19 Rx DOXYcycline CAP(*) [DOXYcycline 100 mg PO BID #14 cap 01/21/19 Rx 100MG CAP(*)] Docusate CAP* [Colace Cap*] 100 mg PO BID cap 01/21/19 Rx oxyCODONE TAB* [Roxycodone TAB 5 5 mg PO Q4H PRN tab 01/21/19 Rx mg*] oxyCODONE TAB* [Roxycodone TAB 5 10 mg PO Q4H PRN tab 01/21/19 Rx mg*] Discharge Instructions following Orthopedic Surgery: Activity: * Nonweightbearing left lower extremity. * Continue physical therapy and occupational therapy exercises as shown Wound care: * Keep dressing clean dry and intact aside from vac changes * wound vac change every 3 days by nursing at [facility] emergency department. Due 01/22/19. * nurse to do wound checks and alert orthopedics with concerns Call Orthopedic office for: * Increased drainage * Redness * Increased pain * Fever Go to ER with shortness of breath or chest pain. Diet: * Regular diet * Increase fluids and fiber to prevent constipation. * Continue to use stool softeners, call office if no bowel motion within 48 hours. Medications See Home Medication List in your packet for medications that you should take after discharge. DVT Prophylaxis: Aspirin Dosin mg once a day. Increases bleeding tendency Pain Control: Oxycodone 5 mg 1 tab every 4 hours as needed for pain. hold for sedation and wean off as soon as pain allows. max 6 tabs per day Antibiotic: doxycycline 100 mg every 12 hours for 1 week. Take with a full glass of water and remain sitting up for 30 minutes after taking FOLLOW UP: Follow up with [Thony] Within 1 week, call for appointment Please call our office with any questions or concerns ([phone]) No RX needed for return to [facility]
[2019-01-21 12:20] VITALS: BP 105/58
[2019-01-21 12:20] LABS: ABS Basophils 0.1 10^3/ul (0-0.2); ABS Eosinophils 0.3 10^3/ul (0-0.6); ABS Monocytes 0.3 10^3/ul (0-0.8); ABS Neutrophils 3.6 10^3/ul (1.5-7.7); Eosinophil % 3.7 %; Hematocrit 39 % (42-52); Hemoglobin 12.7 g/dL (14.0-18.0); Lymphocyte % 41.1 %; Mean Corpuscular HGB Conc 33 g/dL (31-36); Mean Corpuscular Hemoglobin 32 pg (27-31); Mean Corpuscular Volume 96 fL (80-94); Mean Platelet Volume 6.3 fL (7.4-10.4); Nucleated Red Blood Cells % 0.1; Platelet Count 297 10^3/uL (150-450); Red Blood Count 4.01 10^6 /uL (4.18-5.48); Red Cell Distribution Width 16 % (10-15); White Blood Count 7.2 10^3/uL (3.5-10.8)
[2019-01-21 12:37] LABS: BUN/Creatinine Ratio 19.6 (8-20); Calcium 9.2 mg/dL (8.6-10.3); EGFR African American 101.5 (>60); EGFR Non-African American 83.9 (>60)
== END 2019-01-21 13:59 ==
LOC: OR 13:00 → SSU 16:26
PROVIDERS: ADMIT Orthopaedic Surgery; ATTEND Orthopaedic Surgery
DX: S92.332D Displaced fracture of third metatarsal bone, left foot, subsequent encounter for fracture with routine healing (principal); S92.345D Nondisplaced fracture of fourth metatarsal bone, left foot, subsequent encounter for fracture with routine healing; S92.232 Displaced fracture of intermediate cuneiform of left foot; S82.65XD Nondisplaced fracture of lateral malleolus of left fibula, subsequent encounter for closed fracture with routine healing; S93.325D Dislocation of tarsometatarsal joint of left foot, subsequent encounter; T81.31XA Disruption of external operation (surgical) wound, not elsewhere classified, initial encounter; Z47.2 Encounter for removal of internal fixation device; R13.10 Dysphagia, unspecified; E03.9 Hypothyroidism, unspecified; F32.9 Major depressive disorder, single episode, unspecified; E78.00 Pure hypercholesterolemia, unspecified; F41.9 Anxiety disorder, unspecified; F17.210 Nicotine dependence, cigarettes, uncomplicated; Z79.01 Long term (current) use of anticoagulants; X58.XXXD Exposure to other specified factors, subsequent encounter
CPT/HCPCS: 36415; 80048; 85025; 87070; 87073; 87077; 87205; 88300; 96365; 96366; 96375; A9270-GY; G0378; J0690; J1100; J1885; J2001; J2250; J2270; J2405; J2704; J2765; J3010; J3490

== ENCOUNTER 2019-02-08 23:33 | Emergency (ER) | payer OTHER ==
--- NOTE | 2019-02-09 00:05 | ED ---
Medical Screening - HPI Summary HPI Summary: Patient from [facility] presents for possible ETOH intoxication per EMS. Patient in the street 2 months for slow healing foot wound. Presents with wound VAC to left foot. Patient states he is receiving wound care, last dressing yesterday. Denies fever, cough, sore throat, CP, SOB, N/V/D, abdominal pain, change in urine, change in BM. Admits to some depression and stress over staying in longterm. Denies SI, HI. Active smoker. Denies EtOH or recreational drug use. Alert and oriented. Speaking coherently. - History of Current Complaint Chief Complaint: EDGeneral Stated Complaint: ETOH PER EMS Time Seen by Provider: 02/08/19 23:44 Severity: mild PMH/Surg Hx/FS Hx/Imm Hx Endocrine/Hematology History: Reports: Hx Thyroid Disease - hypo Cardiovascular History: Denies: Hx Pacemaker/ICD, Other Cardiovascular Problems/Disorders Respiratory History: Denies: Hx Sleep Apnea GI History: Reports: Hx Hiatal Hernia - for years, Other GI Disorders - gets esophagus stretched-DIFFICULTY SWALLOWING History: Denies: Other Problems/Disorders Musculoskeletal History: Reports: Hx Arthritis - fingers, Other Musculoskeletal History - degenerative bone disease Sensory History: Reports: Hx Contacts or Glasses - for reading Denies: Hx Hearing Aid Opthamlomology History: Reports: Hx Contacts or Glasses - for reading EENT History: Denies: Hx Deafness Neurological History: Denies: Other Neuro Impairments/Disorders Psychiatric History: Reports: Hx Anxiety - ON MEDICATION FOR, Hx Depression - ON MEDICATION FOR - Cancer History Hx Chemotherapy: No - Surgical History Surgery Procedure, Year, and Place: LEFT FOOT SURGERY-2019. APPENDECTOMY-AGE 38 Hx Anesthesia Reactions: No Infectious Disease History: No Infectious Disease History: Denies: Traveled Outside the [place] in Last 30 Days - Family History Known Family History: Positive: Non-Contributory - Social History Alcohol Use: Rare Hx Substance Use: No Substance Use Type: Reports: None Hx Tobacco Use: Yes Smoking Status (MU): Heavy Every Day Tobacco Smoker Amount Used/How Often: 1ppd 40 years Have You Smoked in the Last Year: Yes Review of Systems Constitutional: Negative Eyes: Negative ENT: Negative Cardiovascular: Negative Respiratory: Negative Gastrointestinal: Negative Genitourinary: Negative Musculoskeletal: Negative Skin: Negative Neurological: Negative Psychological: Normal All Other Systems Reviewed And Are Negative: Yes Physical Exam Triage Information Reviewed: Yes Vital Signs On Initial Exam: Initial Vitals Temp Pulse Resp BP Pulse Ox 98.2 F 63 17 109/64 97 02/08/19 23:37 02/08/19 23:37 02/08/19 23:37 02/08/19 23:37 02/08/19 23:37 Vital Signs Reviewed: Yes Appearance: Positive: Well-Appearing Skin: Positive: Warm Head/Face: Positive: Normal Head/Face Inspection Eyes: Positive: Normal Neck: Positive: Supple Respiratory/Lung Sounds: Positive: Clear to Auscultation Cardiovascular: Positive: Normal Abdomen Description: Positive: Nontender Musculoskeletal: Positive: Normal Neurological: Positive: Normal Psychiatric: Positive: Normal AVPU Assessment: Alert - Earnest Coma Scale Best Eye Response: 4 - Spontaneous Best Motor Response: 6 - Obeys Commands Best Verbal Response: 5 - Oriented Coma Scale Total: 15 Procedures - Sedation Patient Received Moderate/Deep Sedation with Procedure: No Diagnostics - Vital Signs Vital Signs Temp Pulse Resp BP Pulse Ox 02/08/19 23:37 98.2 F 63 17 109/64 97 - Laboratory Result Diagrams: 02/09/19 00:13 02/09/19 00:13 Lab Statement: Any lab studies that have been ordered have been reviewed, and results considered in the medical decision making process. Course/Dx - Course Course Of Treatment: Patient from [facility] presents for possible ETOH intoxication per EMS. Patient in the street 2 months for slow healing foot wound. Presents with wound VAC to left foot. Denies fever, cough, sore throat , CP, SOB, N/V/D, abdominal pain, change in urine, change in BM. Admits to some depression and stress over staying in longterm. Denies SI, HI. Active smoker. Denies EtOH or recreational drug use. Alert and oriented. Speaking coherently. Vital signs within normal limits. Hgb 12.4. Lactic acid 2.3. EtOH 262. Labs otherwise within normal limits. Patient coherent and acting appropriately. Discharged back to [facility]. - Diagnoses Provider Diagnoses: Alcohol intoxication Discharge ED - Sign-Out/Discharge Documenting (check all that apply): Sign-Out Patient Signing out patient TO: Manuel Wilson - Discharge Plan Condition: Stable Disposition: NURSING HOME FACILITY Patient Education Materials: Alcohol Intoxication (ED) Referrals: Floyd Arriaga MD [Primary Care Provider] - Additional Instructions: Follow-up with primary care. Return to the ED for any new or worsening symptoms. - Billing Disposition and Condition Condition: STABLE Disposition: [facility]
[2019-02-09 00:29] LABS: Hematocrit 36 % (42-52); Hemoglobin 12.4 g/dL (14.0-18.0); Mean Corpuscular HGB Conc 34 g/dL (31-36); Mean Corpuscular Hemoglobin 33 pg (27-31); Mean Corpuscular Volume 96 fL (80-94); Mean Platelet Volume 6.3 fL (7.4-10.4); Platelet Count 362 10^3/uL (150-450); Red Blood Count 3.78 10^6 /uL (4.18-5.48); Red Cell Distribution Width 15 % (10-15); White Blood Count 8.5 10^3/uL (3.5-10.8)
[2019-02-09 00:45] LABS: ALT 8 U/L (7-52); AST 17 U/L (13-39); Albumin 3.9 g/dL (3.2-5.2); Albumin/Globulin Ratio 1.4 (1-3); Alkaline Phosphatase 76 U/L (34-104); Anion Gap 8 mmol/L (2-11); BUN/Creatinine Ratio 17.9 (8-20); Blood Urea Nitrogen 15 mg/dL (6-24); CO2 Carbon Dioxide 24 mmol/L (22-32); Calcium 8.9 mg/dL (8.6-10.3); Chloride 102 mmol/L (101-111); EGFR African American 112.8 (>60); EGFR Non-African American 93.2 (>60); Globulin 2.8 g/dL (2-4); Glucose 91 mg/dL (70-100); Potassium 3.8 mmol/L (3.5-5.0); Sodium 134 mmol/L (135-145); Total Protein 6.7 g/dL (6.4-8.9)
[2019-02-09 00:48] LABS: ABS Eosinophils 0.4 10^3/ul (0-0.6); ABS Lymphocytes 2.6 10^3/ul (1.0-4.8); ABS Monocytes 0.4 10^3/ul (0-0.8); Eosinophil % 4.4 %; Lymphocyte % 30.8 %
[2019-02-09 00:52] LABS: Alcohol 262 mg/dL (<10); Salicylate < 2.50 mg/dL (<30)
[2019-02-09] MEDS ORDERED: NS 0.9% 1000 ML** 1,000 ML IV ONE (00:57)
[2019-02-09 01:34] LABS: Acetaminophen < 15 mcg/mL
--- NOTE | 2019-02-09 02:31 | ED ---
Progress - Progress Note Progress Note: Patient is received as a sign out from LISY Lozano at 0230 02/09/19 shift end pending sobriety of this alcohol intoxicated patient. Patient sobered up in the emergency department. There were no complications during patient's stay in ED. He was then discharged from ED. Course/Dx - Course Course Of Treatment: Patient is received as a sign out from LISY Michele Blake at 0230 02/09/19 shift end pending sobriety of this alcohol intoxicated patient. Patient sobered up in the emergency department. There were no complications during patient's stay in ED. He was then discharged from ED. - Diagnoses Provider Diagnoses: Alcohol intoxication Discharge ED - Sign-Out/Discharge Documenting (check all that apply): Patient Departure - discharge - Discharge Plan Condition: Stable Disposition: CARE HOME FACILITY Patient Education Materials: Alcohol Intoxication (ED) Referrals: Floyd Arriaga MD [Primary Care Provider] - Additional Instructions: Follow-up with primary care. Return to the ED for any new or worsening symptoms. - Billing Disposition and Condition Condition: STABLE Disposition: [facility] - Attestation Statements Document Initiated by Austin: Yes Documenting Scribe: VAISHNAVI DUKES Provider For Whom Austin is Documenting (Include Credential): JOLLY BLANCHARD MD Scribe Attestation: VAISHNAVI Turner, kayceed for JOLLY BLANCHARD MD on 02/13/19 at 0637. Scribe Documentation Reviewed: Yes Provider Attestation: The documentation as recorded by the VAISHNAVI escobar accurately reflects the service I personally performed and the decisions made by me, JOLLY BLANCHARD MD Status of Scribe Document: Viewed
[2019-02-09 04:42] LABS: Urine Appearance Clear; Urine Bilirubin Negative (Negative); Urine Blood Negative (Negative); Urine Color Yellow; Urine Glucose Negative (Negative); Urine Ketones Negative (Negative); Urine Nitrite Negative (Negative); Urine Protein Negative (Negative); Urine Specific Gravity 1.009 (1.010-1.030); Urine Urobilinogen Negative (Negative)
--- OUTSIDE RECORDS SUMMARY | 2019-02-09 07:40 | XMS REPORT | Continuity of Care Document ---
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 Problems Active Problems Provider Date Traumatic wound dehiscence Lane Bhandari MD Onset: 01/15/2019 Closed fracture of lateral malleolus Lane Bhandari MD Onset: 12/07/2018 Closed fracture of metatarsal bone Lane Bhandari MD Onset: 11/30/2018 Social History Type Date Description Comments Sex Unknown Tobacco Use Start: Unknown Current Cigarette 35 years Smoker 1 Pack Daily Smoking Status Reviewed: 02/05/19 Current Cigarette 35 years Smoker 1 Pack Daily ETOH Use Denies alcohol use Tobacco Use Start: Unknown Patient is a current smoker, smokes every day Recreational Drug Use Denies Drug Use Exercise Type/Frequency Exercises regularly Nautilus machines, weight room, walking, swimming Allergies, Adverse Reactions, Alerts Description No Known Drug Allergies Medications Active Medications SIG Qnty Indications Ordering Provider Date Cephalexin 1 tab every six 60tabs T81.30xA Lane Bhandari MD 02/05/2019 250mg hours Tablets Oxycodone HCL 1 tabs by mouth [address] Bhandari MD 12/10/2018 5mg every 6 hours as Tablets needed Synthroid 1 by mouth every Unknown 125mcg day Tablets Seroquel 1 by mouth daily Unknown 200mg Tablets Effexor XR 3 by mouth once Unknown 75mg Caps ER daily 24HR Ibuprofen 2 by mouth daily Unknown Doxycycline Hyclate 1 by mouth three Unknown times per day 100mg Capsules History Medications Cephalexin 1 tab by mouth 40tabs S92.322A Lane Bhandari MD 01/15/2019 - 250mg every six hours 01/21/2019 Tablets x 10 days Cephalexin 1 tab every six [address] Bhandari MD 12/25/2018 - 250mg hours 01/04/2019 Tablets Xarelto take one tab 30tabs Lane Bhandari MD 12/10/2018 - 10mg per day 12/24/2018 Tablets Roller Walker with hand S92.322A Lane Bhandari MD 12/07/2018 - Misc brakes and seat 12/24/2018 ht: 69" wt: 175 S92.332A Immunizations Description No Information Available Vital Signs Date Vital Result Comment 02/05/2019 9:20am Height 69 inches 5'9" Weight 182.00 lb Heart Rate 108 /min Respiratory Rate 16 /min Body Temperature 97.4 F Pain Level 8 BMI (Body Mass Index) 26.9 kg/m2 01/26/2019 9:47am Height 69 inches 5'9" Weight 182.00 lb BP Systolic 122 mmHg BP Diastolic 80 mmHg Respiratory Rate 16 /min Body Temperature 97.5 F Pain Level 8 BMI (Body Mass Index) 26.9 kg/m2 Results Description No Information Available Procedures Date Code Description Status 01/19/2019 67582 Negative Pressure Wound Therapy Less Than 50 Square CM Completed 01/19/2019 72754 Negative Pressure Wound Therapy Less Than 50 Square CM Completed 01/19/201944455 Removal Implant Deep Wire,Screw Nail,Gonzalo Or Plate Completed 01/19/201909674 Removal Implant Deep Wire,Screw Nail,Gonzalo Or Plate Completed 01/15/2019 08529 application of short leg splint Completed 01/01/2019 76973 Short Leg Cast Completed 12/25/2018 87405 Short Leg Cast Completed 12/11/2018 65322 application of short leg splint Completed 12/10/2018 06310 Dislocation Tarsometatarsal JT W/Wo Fixation Open [place] Completed 12/10/2018 61970 Dislocation Tarsometatarsal JT W/Wo Fixation Open TX Completed 12/10/2018 29173 Dislocation Tarsometatarsal JT W/Wo Fixation Open TX Completed 12/10/2018 19185 Open TX Metatarsal FX,Incl Intl Fixation When Performed Completed 12/10/2018 41156 FX Metatarsal Care Completed 12/10/2018 00478 FX Metatarsal Care Completed 12/10/2018 25194 Open TX Tarsal Bone FX(Except Talus & Calcaneus) Incl Completed Fixation Medical Devices Description No Information Available Encounters Type Date Location Provider Dx Diagnosis Office Visit 01/22/2019 [facility], 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, 1:30p [facility] 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 G47.00 Insomnia, unspecified Office Visit 12/07/2018 Jelly Bhandari, S92.322A Disp fx of 8:15a [facility] at [facility] [place] metatarsal bone, left foot, init S92.332A Disp fx of third metatarsal bone, left foot, init S92.345A Nondisp fx of fourth metatarsal bone, left foot, init S82.65xA Nondisp fx of lateral malleolus of left fibula, init Office Visit 11/30/2018 Jelly Bhandari, S92.322A Disp fx of 11:15a [facility] at [facility] [place] metatarsal bone, left foot, init Assessments Date Code Description Provider 02/05/2019 T81.30xA Disruption of wound, unspecified, initial Lane Bhandari MD encounter 01/26/2019 T81.30xA Disruption of wound, unspecified, initial Lane Bhandari MD encounter 01/22/2019 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, unspecified Traci Ann MD 01/22/2019 G47.00 Insomnia, unspecified Traci Ann MD 01/19/2019 T81.30xA Disruption of wound, unspecified, initial MARGRET Cardoso encounter 01/19/2019 T81.30xA Disruption of wound, unspecified, initial Lane Bhandari MD encounter 01/15/2019 S92.332A Displaced fracture of third metatarsal bone, Lane Bhandari MD left foot, initial encounter for closed fracture 01/15/2019 S92.345A Nondisplaced fracture of fourth metatarsal Lane Bhandari MD bone, left foot, initial encounter for closed fracture 01/15/2019 S92.232A Displaced fracture of intermediate cuneiform Lane Bhandari MD of left foot, initial encounter for closed fracture 01/15/2019 S82.65xA Nondisplaced fracture of lateral malleolus of Lane Bhandari MD left fibula, initial encounter for closed fracture 01/15/2019 S93.325A Dislocation of tarsometatarsal joint of left Lane Bhandari MD foot, initial encounter 01/15/2019 T81.30xA Disruption of wound, unspecified, initial Lane Bhandari MD encounter 01/01/2019 S92.322A Displaced fracture of second metatarsal bone, Lane Bhandari MD left foot, initial encounter for closed fracture 01/01/2019 S92.332A Displaced fracture of third metatarsal bone, Lane Bhandari MD left foot, initial encounter for closed fracture 01/01/2019 S92.345A Nondisplaced fracture of fourth metatarsal Lane Bhandari MD bone, left foot, initial encounter for closed fracture 01/01/2019 S92.232A Displaced fracture of intermediate cuneiform Lane Bhandari MD of left foot, initial encounter for closed fracture 01/01/2019 S82.65xA Nondisplaced fracture of lateral malleolus of Lane Bhandari MD left fibula, initial encounter for closed fracture 01/01/2019 S93.325A Dislocation of tarsometatarsal joint of left Lane Bhandari MD foot, initial encounter 12/25/2018 S92.322A Displaced fracture of second metatarsal bone, Lane Bhandari MD left foot, initial encounter for closed fracture 12/25/2018 S92.332A Displaced fracture of third metatarsal bone, Lane Bhandari MD left foot, initial encounter for closed fracture 12/25/2018 S92.345A Nondisplaced fracture of fourth metat[address]al Lane Bhandari MD bone, left foot, initial encounter for closed fracture 12/25/2018 S92.232A Displaced fracture of intermediate izabeleiform Lane Bhandari MD of left foot, initial encounter for closed fracture 12/25/2018 S82.65xA Nondisplaced fracture of lateral malleolus of Lane Bhandari MD left fibula, initial encounter for closed fracture 12/11/2018 S93.325A Dislocation of tarsometatarsal joint of [...] 12/11/2018 S92.232A Displaced fracture of intermediate cuneiform Lane Bhandari MD of left foot, initial encounter for closed fracture 12/11/2018 S82.65xA Nondisplaced fracture of lateral malleolus of Lane Bhandari MD left fibula, initial encounter for closed fracture 12/10/2018 S92.322A Displaced fracture of second metatarsal bone, Jeaneth [place], RPA-C left foot, initial encounter for closed fracture 12/10/2018 S93.325A Dislocation of tarsometatarsal joint of left Jeaneth [place], RPA-C foot, initial encounter 12/10/2018 S92.332A Displaced fracture of third metatarsal bone, Jeaneth [place], RPA-C left foot, initial encounter for closed fracture 12/10/2018 S93.325A Dislocation of tarsometatarsal joint of left Lane Bhandari MD foot, initial encounter 12/10/2018 S92.345A Nondisplaced fracture of fourth metatarsal Jeaneth [place] , RPA-C bone, left foot, initial encounter for closed fracture 12/10/2018 S92.322A Displaced fracture of second metatarsal bone, Jeaneth [place], RPA-C left foot, initial encounter for closed fracture 12/10/2018 S92.232A Displaced fracture of intermediate cuneiform Jeaneth [place], RPA-C of left foot, initial encounter for closed fracture 12/10/2018 S92.322A Displaced fracture of second metatarsal bone, Lane Bhandari MD left foot, initial encounter for closed fracture 12/10/2018 S82.65xA Nondisplaced fracture of lateral malleolus of Jeaneth [place], RPA-C left fibula, initial encounter for closed fracture 12/10/2018 S92.332A Displaced fracture of third metatarsal bone, Jeaneth Boyd, RPA-C left foot, initial encounter for closed fracture 12/10/2018 S92.332A Displaced fracture of third metatarsal bone, Lane Bhandari MD left foot, initial encounter for closed fracture 12/10/2018 S92.345A Nondisplaced fracture of fourth metatarsal Jeaneth [place] , RPA-C bone, left foot, initial encounter for closed fracture 12/10/2018 S92.345A Nondisplaced fracture of fourth metatarsal Lane Bhandari MD bone, left foot, initial encounter for closed fracture 12/10/2018 S92.232A Displaced fracture of intermediate cuneiform Jeaneth Deb, RPA-C of left foot, initial encounter for closed fracture 12/10/2018 S92.232A Displaced fracture of intermediate cuneiform Lane Bhandari MD of left foot, initial encounter for closed fracture 12/10/2018 S82.65xA Nondisplaced fracture of lateral malleolus of Jeaneth Boyd, RPA-C left fibula, initial encounter for closed fracture 12/07/2018 S92.322A [...] encounter for closed fracture Plan of Treatment 02/05/2019 - Lane Bhandari MDT81.30xA Disruption of wound, unspecified, initial encounterNew Medication:Cephalexin 250 mg - 1 tab every six hoursFollow up:Follow Up: 2 weeks Functional Status Description No Information Available Mental Status Description No Information Available Referrals Description No Information Available
--- OUTSIDE RECORDS SUMMARY | 2019-02-09 07:40 | XMS REPORT | Continuity of Care Document ---
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 Active Problems Provider Date Closed fracture of lateral malleolus Lane Bhandari MD Onset: 12/07/2018 Closed fracture of metatarsal bone Lane Bhandari MD Onset: 11/30/2018 Social History Type Date Description Comments Sex Unknown ETOH Use Denies alcohol use Tobacco Use Start: Unknown Patient is a current smoker, smokes every day Smoking Status Reviewed: 01/01/19 Patient is a current smoker, smokes every day Exercise Type/Frequency Exercises sporadically Allergies, Adverse Reactions, Alerts Description No Known Drug Allergies Medications Active Medications SIG Qnty Indications Ordering Provider Date Cephalexin 1 tab every six 40[address] S92.[address]A Lane Bhandari MD 12/25/2018 250mg hours Tablets Oxycodone HCL 1 tabs by mouth 15[address] Bhandari MD 12/10/2018 5mg every 6 hours as Tablets needed Synthroid 1 by mouth every Unknown 125mcg day Tablets Seroquel Unknown 300mg Tablets Effexor XR pt states he Unknown 75mg Caps ER takes 225 mg ( 3 24HR caps in am) Ibuprofen Unknown History Medications Xarelto take one tab 30tabs Lane Bhandari MD 12/10/2018 - 10mg per day 12/24/2018 Tablets Roller Walker with hand S92.322A Lane Bhandari MD 12/07/2018 - brakes and seat 12/24/2018 [facility] ht: 69" wt: 175 S92.332A Immunizations Description No Information Available Vital Signs Date Vital Result Comment 01/01/2019 12:05pm Height 69 inches 5'9" Weight 178.00 lb Heart Rate 72 /min BP Systolic 130 mmHg BP Diastolic 80 mmHg Respiratory Rate 12 /min Pain Level 8 BMI (Body Mass Index) 26.3 kg/m2 12/25/2018 10:46am Height 69 inches 5'9" Weight 180.00 lb stated wt pt in pain Heart Rate 64 /min BP Systolic 100 mmHg BP Diastolic 72 mmHg Respiratory Rate 17 /min Body Temperature 97.6 F Pain Level 8 BMI (Body Mass Index) 26.6 kg/m2 Results Description No Information Available Procedures Date Code Description Status 01/01/2019 88805 Short Leg Cast Completed 12/25/2018 35439 Short Leg Cast Completed 12/11/2018 89203 application of short leg splint Completed 12/10/2018 67007 Dislocation Tarsometatarsal JT W/Wo Fixation Open TX Completed 12/10/2018 65359 Dislocation Tarsometatarsal JT W/Wo Fixation Open TX Completed 12/10/2018 88059 Dislocation Tarsometatarsal JT W/Wo Fixation Open TX Completed 12/10/2018 74979 Open TX Metatarsal FX,Incl Intl Fixation When Performed Completed 12/10/2018 18440 FX Metatarsal Care Completed 12/10/2018 18247 FX Metatarsal Care Completed 12/10/2018 79356 Open TX Tarsal Bone FX(Except Talus & Calcaneus) Incl Completed Fixation Medical Devices Description No Information Available Encounters Type Date Location Provider Dx Diagnosis Office Visit 12/07/[address] [facility] [address] Bhandari S92.322A Disp fx of second 8:15a at [place] metatarsal bone, left foot, init S92.332A Disp fx of third metatarsal bone, left foot, init S92.345A Nondisp fx of fourth metatarsal bone, left foot, init S82.65xA Nondisp fx of lateral malleolus of left fibula, init Office Visit 11/30/2018 [facility] S92.322A Disp fx of 11:15a Orthoped[facility] at [facility] [place] metatarsal bone, left foot, init Assessments Date Code Description Provider 01/01/2019 S92.322A Displaced fracture of second metatarsal [...] fracture 12/25/2018 S92.232A Displaced fracture of intermediate cuneiform Lane [...] Displaced fracture of second metatarsal bone, Jeaneth [place], RPA-C left foot, initial encounter for closed fracture 12/10/2018 S93.325A Dislocation of tarsometatarsal joint of left Jeaneth [place], RPA-C foot, initial encounter 12/10/2018 S92.332A Displaced fracture of third metatarsal bone, Jeaneth Deb, RPA-C left foot, initial encounter for closed fracture 12/10/2018 S93.325A Dislocation of tarsometatarsal joint of left Lane Bhandari MD foot, initial encounter 12/10/2018 S92.345A Nondisplaced fracture of fourth metatarsal Jeaneth [place] , RPA-C bone, left foot, initial encounter for closed fracture 12/10/2018 S92.322A Displaced fracture of second metatarsal bone, Jeaneth [place], RPA-C left foot, initial encounter for closed fracture 12/10/2018 S92.232A Displaced fracture of intermediate cuneiform Jeaneth [place], RPA-C of left foot, initial encounter for closed fracture 12/10/2018 S92.322A Displaced fracture of second metatarsal bone, Lane Bhandari MD left foot, initial encounter for closed fracture 12/10/2018 S82.65xA Nondisplaced fracture of lateral malleolus of Jeaneth [place], RPA-C left fibula, initial encounter for closed fracture 12/10/2018 S92.332A Displaced fracture of third metatarsal bone, Jeaneth [place], RPA-C left foot, initial encounter for closed fracture 12/10/2018 S92.332A Displaced fracture of third metatarsal bone, Lane Bhandari MD left foot, initial encounter for closed fracture 12/10/2018 S92.345A Nondisplaced fracture of fourth metatarsal Jeaneth Deb , RPA-C bone, left foot, initial encounter for closed fracture 12/10/2018 S92.345A Nondisplaced fracture of fourth met[address] Lane Bhandari MD bone, left foot, initial encounter for closed fracture 12/10/2018 S92.232A Displaced fracture of intermediate cuneiform Jeaneth Boyd RPA-C of left foot, initial encounter for closed fracture 12/10/2018 S92.232A Displaced fracture of intermediate cuneiform Lane Bhandari MD of left foot, initial encounter for closed fracture 12/10/2018 S82.65xA Nondisplaced fracture of lateral malleolus of Jeaneth [place]joy, RPA-C left fibula, initial encounter for closed [...] for closed fracture Plan of Treatment Future Appointment(s):01/15/2019 11:00 am - Lane Bhandari MD at [facility] at [facility]/18/2019 8:00 am - Traci Ann MD at [facility]01/01/2019 - ZAHIDA Marquez92.322A Displaced fracture of second metatarsal bone, left foot, initial encounter for closed [id number] Displaced fracture of third metatarsal bone, left foot, initial encounter for closed [id number] Nondisplaced fracture of fourth metatarsal bone, left foot, initial encounter for closed [id number] Displaced fracture of intermediate cuneiform of left foot, initial encounter for closed [id number] Nondisplaced fracture of lateral malleolus of left fibula, initial encounter for closed [id number] Dislocation of tarsometatarsal joint of left foot, initial encounterFollow up:Follow Up: 2 weeks Functional Status Description No Information Available Mental Status Description No Information Available Referrals Description No Information Available
--- OUTSIDE RECORDS SUMMARY | 2019-02-09 07:40 | XMS REPORT | Continuity of Care Document ---
:1960 External Reference #:[id number] [address] Bhandari MD (transmitted by agent of provider Triny Myles) Address [address] [place] [phone] Care Team Providers Name Role Phone Floyd Arriaga MD - Family Medicine Care Team Information Lay Brother Problems Active Problems Provider Date Closed fracture of lateral malleolus Lane Bhandari MD Onset: 12/07/2018 Closed fracture of metatarsal bone Lane Bhandari MD Onset: 11/30/2018 Social History Type Date Description Comments Sex Unknown ETOH Use Denies alcohol use Tobacco Use Start: Unknown Patient is a current smoker, smokes every day Smoking Status Reviewed: 01/15/19 Patient is a current smoker, smokes every day Exercise Type/Frequency Exercises sporadically Allergies, Adverse Reactions, Alerts Description No Known Drug Allergies Medications Active Medications SIG Qnty Indications Ordering Provider Date Cephalexin 1 tab by mouth 40tabs S92.322A Lane Bhandari MD 01/15/2019 250mg every six hours Tablets x 10 days Oxycodone HCL [address] tabs by mouth [address] Bhandari MD 12/10/2018 5mg every 6 hours as Tablets needed Synthroid 1 by mouth every Unknown 125mcg day Tablets Seroquel Unknown 300mg Tablets Effexor XR pt states he Unknown 75mg Caps ER takes 225 mg ( 3 24HR caps in am) Ibuprofen Unknown History Medications Cephalexin 1 tab every six [address] S[address] Lane Bhandari MD 12/25/2018 - 250mg hours 01/04/2019 Tablets Xarelto take one tab 30tabs Lane Bhandari MD 12/10/2018 - 10mg per day 12/24/2018 Tablets Roller Walker with hand S92.322A Lane Bhandari MD 12/07/2018 - Misc brakes and seat 12/24/2018 ht: 69" wt: 175 S92.332A Immunizations Description No Information Available Vital Signs Date Vital Result Comment 01/15/2019 11:25am Height 69 inches 5'9" Weight 172.00 lb Heart Rate 96 /min BP Systolic 142 mmHg BP Diastolic 80 mmHg Respiratory Rate 18 /min Body Temperature 98.5 F Pain Level 8 BMI (Body Mass Index) 25.4 kg/m2 01/01/2019 12:05pm Height 69 inches 5'9" Weight 178.00 lb Heart Rate 72 /min BP Systolic 130 mmHg BP Diastolic 80 mmHg Respiratory Rate 12 /min Pain Level 8 BMI (Body Mass Index) 26.3 kg/m2 Results Description No Information Available Procedures Date Code Description Status 01/01/2019 27410 Short Leg Cast Completed 12/25/2018 52067 Short Leg Cast Completed 12/11/2018 13905 application of short leg splint Completed 12/10/2018 92048 Dislocation Tarsometatarsal JT W/Wo Fixation Open TX Completed 12/10/2018 13516 Dislocation Tarsometatarsal JT W/Wo Fixation Open TX Completed 12/10/2018 19827 Dislocation Tarsometatarsal JT W/Wo Fixation Open TX Completed 12/10/2018 88660 Open TX Metatarsal FX,Incl Intl Fixation When Performed Completed 12/10/2018 99414 FX Metatarsal Care Completed 12/10/2018 90421 FX Metatarsal Care Completed 12/10/2018 01450 Open TX Tarsal Bone FX(Except Talus & Calcaneus) Incl Completed Fixation Medical Devices Description No Information Available Encounters Type Date Location Provider Dx Diagnosis Office Visit 12/07/[address] [facility] [address] Bhandari, S92.322A Disp fx of second 8:15a at [place] metatarsal bone, left foot, init S92.332A Disp fx of third metatarsal bone, left foot, init S92.345A Nondisp fx of fourth metatarsal bone, left foot, init S82.65xA Nondisp fx of lateral malleolus of left fibula, init Office Visit 11/30/[address] [facility] [address] Bhandari, S92.322A Disp fx of 11:15a Orthopedics at second [place] metatarsal bone, left foot, init Assessments Date Code Description Provider 01/15/2019 S92.332A Displaced fracture of third metatarsal [...] left Lane Bhandari MD foot, initial encounter 01/01/2019 S92.322A Displaced fracture of second [...] Displaced fracture of second metatarsal bone, Jeaneth Boyd RPA-C left foot, initial encounter for closed fracture 12/10/2018 S93.325A Dislocation of tarsometatarsal joint of left Jeaneth Boyd RPA-C foot, initial encounter 12/10/2018 S92.332A Displaced fracture of third metatarsal bone, Jeaneth Boyd RPA-C left foot, initial encounter for closed fracture 12/10/2018 S93.325A Dislocation of tarsometatarsal joint of left Lane Bhandari MD foot, initial encounter 12/10/2018 S92.345A Nondisplaced fracture of fourth metatarsal Jeaneth Boyd RPA-C bone, left foot, initial encounter for closed fracture 12/10/2018 S92.322A Displaced fracture of second metatarsal bone, Jeaneth Boyd RPA-C left foot, initial encounter for closed fracture 12/10/2018 S92.232A Displaced fracture of intermediate cuneiform Jeaneth Deb, RPA-C of left foot, initial encounter for closed fracture 12/10/2018 S92.322A Displaced fracture of second metatarsal bone, Lane Bhandari MD left foot, initial encounter for closed fracture 12/10/2018 S82.65xA Nondisplaced fracture of lateral malleolus of Jeaneth [place], RPA-C left fibula, initial encounter for closed fracture 12/10/2018 S92.332A Displaced fracture of third metatarsal bone, Jeaneth Deb, RPA-C left foot, initial encounter for closed fracture 12/10/2018 S92.332A Displaced fracture of third metatarsal bone, Lane Bhandari MD left foot, initial encounter for closed fracture 12/10/2018 S92.345A Nondisplaced fracture of fourth metatarsal Jeaneth [place] , RPA-C bone, left foot, initial encounter for closed fracture 12/10/2018 S92.345A Nondisplaced fracture of fourth met[address] Bhandari MD bone, left foot, initial encounter for closed fracture 12/10/2018 S92.232A Displaced fracture of intermediate cuneiform Jeaneth [place], RPA-C of left foot, initial encounter for closed fracture 12/10/2018 S92.232A Displaced fracture of intermediate cuneiform Lane Bhandari MD of left foot, initial encounter for closed fracture 12/10/2018 S82.65xA Nondisplaced fracture of lateral malleolus of Jeaneth Deb, RPA-C left fibula, initial encounter for closed [...] for closed fracture Plan of Treatment Future Appointment(s):01/26/2019 9:45 am - Lane Bhandari MD at [facility] at [facility]/15/2019 - ZAHIDA Marquez92.332A Displaced fracture of third metatarsal bone, left foot, initial encounter for closed [id number] Nondisplaced fracture of fourth metatarsal bone, left foot, initial encounter for closed [id number] Displaced fracture of intermediate cuneiform of left foot, initial encounter for closed [id number] Nondisplaced fracture of lateral malleolus of left fibula, initial encounter for closed [id number] Dislocation of tarsometatarsal joint of left foot, initial encounterFollow up:Follow Up: 1 week postop Functional Status Description No Information Available Mental Status Description No Information Available Referrals Description No Information Available
--- OUTSIDE RECORDS SUMMARY | 2019-02-09 07:40 | XMS REPORT | Continuity of Care Document ---
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 Provider Date Closed fracture of lateral malleolus Lane Bhandari MD Onset: 12/07/2018 Closed fracture of metatarsal bone Lane Bhandari MD Onset: 11/30/2018 Social History Type Date Description Comments Sex Unknown ETOH Use Denies alcohol use Tobacco Use Start: Unknown Patient is a current smoker, smokes every day Smoking Status Reviewed: 12/25/18 Patient is a current smoker, smokes every [...] MD 12/07/2018 - brakes and seat 12/24/2018 [facility] [place]t: 69" wt: 175 S92.332A Immunizations Description No Information Available Vital Signs Date Vital Result Comment 12/25/2018 10:46am Height 69 inches 5'9" Weight 180.00 lb stated wt pt in pain Heart Rate 64 /min BP Systolic 100 mmHg BP Diastolic 72 mmHg Respiratory Rate 17 /min Body Temperature 97.6 F Pain Level 8 BMI (Body Mass Index) 26.6 kg/m2 12/11/2018 9:22am Height 69 inches 5'9" Weight 175.00 lb BP Systolic 140 mmHg BP Diastolic 84 mmHg Body Temperature 98.0 F BMI (Body Mass Index) 25.8 kg/m2 Results Description No Information Available Procedures Date Code Description Status 12/25/2018 43381 Short Leg Cast Completed 12/11/2018 73704 application of short leg splint Completed 12/10/2018 20623 Dislocation Tarsometatarsal JT W/Wo Fixation Open TX Completed 12/10/2018 28753 Dislocation Tarsometatarsal JT W/Wo Fixation Open TX Completed 12/10/2018 15212 Dislocation Tarsometatarsal JT W/Wo Fixation Open TX Completed 12/10/2018 29958 Open TX Metatarsal FX,Incl Intl Fixation When Performed Completed 12/10/2018 11137 FX Metatarsal Care Completed 12/10/2018 89416 FX Metatarsal Care Completed 12/10/2018 23242 Open TX Tarsal Bone FX(Except Talus & Calcaneus) Incl Completed Fixation Medical Devices Description No Information Available Encounters Type Date Location Provider Dx Diagnosis Office Visit 12/07/[address] [facility] [address] Bhandari, S92.322A Disp fx of second 8:15a at [place] metatarsal bone, left foot, init S92.332A Disp fx of third metatarsal bone, left foot, init S92.345A Nondisp fx of fourth metatarsal bone, left foot, init S82.65xA Nondisp fx of lateral malleolus of left fibula, init Office Visit 11/30/2018 Jelly Bhandari, S92.322A Disp fx of 11:15a [facility]oped[facility] at [facility] metatarsal bone, left foot, init Assessments Date Code Description Provider 12/25/2018 S92.322A Displaced fracture of second metatarsal [...] Displaced fracture of second metatarsal bone, Jeaneth Deb, RPA-C left foot, initial encounter for closed fracture 12/10/2018 S92.232A Displaced fracture of intermediate cuneiform Jeaneth Deb, RPA-C of left foot, initial encounter for closed fracture 12/10/2018 S92.322A Displaced fracture of second metatarsal bone, Lane Bhandari MD left foot, initial encounter for closed fracture 12/10/2018 S82.65xA Nondisplaced fracture of lateral malleolus of Jeaneth [place], RPA-C left fibula, initial encounter for closed fracture 12/10/2018 S92.332A Displaced fracture of third metatarsal bone, Jeaneth [place], RPA-C left foot, initial encounter for closed fracture 12/10/2018 S92.332A Displaced fracture of third metatarsal bone, Lane Bhandari MD left foot, initial encounter for closed fracture 12/10/2018 S92.345A Nondisplaced fracture of fourth metatarsal Jeaneth [place] , RPA-C bone, left foot, initial encounter [...] Ann MD [facility]12/25/2018 - ZAHIDA Marquez92.322A Displaced fracture of second metatarsal bone, left foot, initial encounter for closed fractureNew Medication:Cephalexin 250 mg - 1 tab every six hoursFollow up: Follow Up: 1 weekS92.332A Displaced fracture of third metatarsal bone, left foot, initial encounter for closed dpovukzxI69.345A Nondisplaced fracture of fourth metatarsal bone, left foot, initial encounter for closed ogeqgztjU55.232A Displaced fracture of intermediate cuneiform of left foot, initial encounter for closed xhmjhplxO73.65xA Nondisplaced fracture of lateral malleolus of left fibula, initial encounter for closed fracture Functional Status Description No Information Available Mental Status Description No Information Available Referrals Description No Information Available
--- OUTSIDE RECORDS SUMMARY | 2019-02-09 07:40 | XMS REPORT | Continuity of Care Document ---
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 Provider Date Traumatic wound dehiscence Lane Bhandari MD Onset: 01/15/2019 Closed fracture of lateral malleolus Lane Bhandari MD Onset: 12/07/2018 Closed fracture of metatarsal bone Lane Bhandari MD Onset: 11/30/2018 Social History Type Date Description Comments Sex Unknown Tobacco Use Start: Unknown Current Cigarette 35 years Smoker 1 Pack Daily Smoking Status Reviewed: 01/26/19 Current Cigarette 35 years Smoker 1 Pack [...] Available Vital Signs Date Vital Result Comment 01/26/2019 9:47am Height 69 inches 5'9" Weight 182.00 lb BP Systolic 122 mmHg BP Diastolic 80 mmHg Respiratory Rate 16 /min Body Temperature 97.5 F Pain Level 8 BMI (Body Mass Index) 26.9 kg/m2 01/22/2019 1:00pm Height 69 inches 5'9" Weight 182.00 lb Per pt, pt in wheelchair Heart Rate 82 /min BP Systolic Sitting 122 mmHg Rue reg cuff BP Diastolic Sitting 72 mmHg Rue reg cuff O2 % BldC Oximetry 91 % On Ra BMI (Body Mass Index) 26.9 kg/m2 Neck Circumference in inches 16 Results Description No Information Available Procedures Date Code Description Status 01/19/2019 29453 Negative Pressure Wound Therapy Less Than 50 Square CM Completed 01/19/2019 61729 Negative Pressure Wound Therapy Less Than 50 Square CM Completed 01/19/201975568 Removal Implant Deep Wire,Screw Nail,Gonzalo Or Plate Completed 01/19/2019 58669 Removal Implant Deep Wire,Screw Nail,Gonzalo Or Plate Completed 01/15/2019 09526 application of short leg splint Completed 01/01/2019 25076 Short Leg Cast Completed 12/25/2018 46195 Short Leg Cast Completed 12/11/2018 82796 application of short leg splint Completed 12/10/2018 85125 Dislocation Tarsometatarsal JT W/Wo Fixation Open TX Completed 12/10/2018 59854 Dislocation Tarsometatarsal JT W/Wo Fixation Open TX Completed 12/10/2018 53135 Dislocation Tarsometatarsal JT W/Wo Fixation Open TX Completed 12/10/2018 36903 Open TX Metatarsal FX,Incl Intl Fixation When Performed Completed 12/10/2018 00797 FX Metatarsal Care Completed 12/10/2018 08538 FX Metatarsal Care Completed 12/10/2018 31871 Open TX Tarsal Bone FX(Except Talus & Calcaneus) Incl Completed Fixation Medical Devices Description No Information Available Encounters Type Date Location Provider Dx Diagnosis Office Visit 12/07/[address] [facility] [address] Bhandari, S92.322A Disp fx of second 8:15a at [place] metatarsal bone, left foot, init S92.332A Disp fx of third metatarsal bone, left foot, init S92.345A Nondisp fx of fourth metatarsal bone, left foot, init S82.65xA Nondisp fx of lateral malleolus of left fibula, init Office Visit 11/30/[address] Bhandari, S92.322A Disp fx of 11:15a Orthopedics at [facility] metatarsal bone, left foot, init Assessments Date Code Description Provider 01/26/2019 T81.30xA Disruption of wound, unspecified, initial [...] Displaced fracture of second metatarsal bone, Jeaneth [place], RPA-C left foot, initial encounter for closed fracture 12/10/2018 S93.325A Dislocation of tarsometatarsal joint of left Jeaneth Deb, RPA-C foot, initial encounter 12/10/2018 S92.332A Displaced fracture of third metatarsal bone, Jeaneth [place], RPA-C left foot, initial encounter for closed fracture 12/10/2018 S93.325A Dislocation of tarsometatarsal joint of left Lane Bhandari MD foot, initial encounter 12/10/2018 S92.345A Nondisplaced fracture of fourth metatarsal Jeaneth [place] , RPA-C bone, left foot, initial encounter for closed fracture 12/10/2018 S92.322A Displaced fracture of second metatarsal bone, Jeaneth Deb, RPA-C left foot, initial encounter for closed fracture 12/10/2018 S92.232A Displaced fracture of intermediate cuneiform Jeaneth [place], RPA-C of left foot, initial encounter for closed fracture 12/10/2018 S92.322A Displaced fracture of second metatarsal bone, Lane Bhandari MD left foot, initial encounter for closed fracture 12/10/2018 S82.65xA Nondisplaced fracture of lateral malleolus of Jeaneth [place], RPA-C left fibula, initial encounter for closed [...] S92.232A Displaced fracture of intermediate cuneiform Jeaneth [place], RPA-C of left foot, initial encounter for [...] for closed fracture Plan of Treatment Future Appointment(s):02/05/2019 9:15 am - Lane Bhandari MD at [facility] at [id number]/26/2019 - Lane Bhandari MDT81.30xA Disruption of wound , unspecified, initial encounterFollow up:Follow Up: 1 week Functional Status Description No Information Available Mental Status Description No Information Available Referrals Description No Information Available
--- OUTSIDE RECORDS SUMMARY | 2019-02-09 07:40 | XMS REPORT | Continuity of Care Document ---
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 Provider Date Traumatic wound dehiscence Lane Bhandari MD Onset: 01/15/2019 Closed fracture of lateral malleolus Lane Bhandari MD Onset: 12/07/2018 Closed fracture of metatarsal bone Lane Bhandari MD Onset: 11/30/2018 Social History Type Date Description Comments Sex Unknown Tobacco Use Start: Unknown Current Cigarette 35 years Smoker 1 Pack Daily Smoking Status Reviewed: 01/22/19 Current Cigarette 35 years Smoker 1 Pack [...] Available Vital Signs Date Vital Result Comment 01/22/2019 1:00pm Height 69 inches 5'9" Weight 182.00 lb Per pt, pt in wheelchair Heart Rate 82 /min BP Systolic Sitting 122 mmHg Rue reg cuff BP Diastolic Sitting 72 mmHg Rue reg cuff O2 % BldC Oximetry 91 % On Ra BMI (Body Mass Index) 26.9 kg/m2 Neck Circumference in inches 16 01/15/2019 11:25am Height 69 inches 5'9" Weight 172.00 lb Heart Rate 96 /min BP Systolic 142 mmHg BP Diastolic 80 mmHg Respiratory Rate 18 /min Body Temperature 98.5 F Pain Level 8 BMI (Body Mass Index) 25.4 kg/m2 Results Description No Information Available Procedures Date Code Description Status 01/19/2019 35997 Negative Pressure Wound Therapy Less Than 50 Square CM Completed 01/19/2019 89791 Negative Pressure Wound Therapy Less Than 50 Square CM Completed 01/19/2019 86311 Removal Implant Deep Wire,Screw Nail,Gonzalo Or Plate Completed 01/19/2019 47702 Removal Implant Deep Wire,Screw Nail,Gonzalo Or Plate Completed 01/15/2019 79664 application of short leg splint Completed 01/01/2019 59102 Short Leg Cast Completed 12/25/2018 75567 Short Leg Cast Completed 12/11/2018 30530 application of short leg splint Completed 12/10/2018 39587 Dislocation Tarsometatarsal JT W/Wo Fixation Open TX Completed 12/10/2018 29307 Dislocation Tarsometatarsal JT W/Wo Fixation Open TX Completed 12/10/2018 85058 Dislocation Tarsometatarsal JT W/Wo Fixation Open TX Completed 12/10/2018 13067 Open TX Metatarsal FX,Incl Intl Fixation When Performed Completed 12/10/2018 86286 FX Metatarsal Care Completed 12/10/2018 57150 FX Metatarsal Care Completed 12/10/2018 42193 Open TX Tarsal Bone FX(Except Talus & Calcaneus) Incl Completed Fixation Medical Devices Description No Information Available Encounters Type Date Location Provider Dx Diagnosis Office Visit 01/22/2019 [facility], 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, 1:30p [facility]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 G47.00 Insomnia, unspecified Office Visit 12/07/2018 Jelly Bhandari, S92.322A Disp fx of 8:15a [facility]oped[facility] at [facility] [place] metatarsal bone, left foot, init S92.332A Disp fx of third metatarsal bone, left foot, init S92.345A Nondisp fx of fourth metatarsal bone, left foot, init S82.65xA Nondisp fx of lateral malleolus of left fibula, init Office Visit 11/30/2018 Jelly Bhandari, S92.322A Disp fx of 11:15a [facility]oped[facility] at [facility] [place] metatarsal bone, left foot, init Assessments Date Code Description Provider 01/22/2019 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, unspecified Traci Ann [...] fracture 01/01/2019 S92.232A Displaced fracture of intermediate carlform Lane Bhandari MD of left foot, initial [...] Dislocation of tarsometatarsal joint of left Jeaneth [place], RPA-C foot, initial encounter 12/10/2018 S92.332A Displaced fracture of third metatarsal bone, Jeaneth Deb, RPA-C left foot, initial encounter for closed fracture 12/10/2018 S93.325A Dislocation of tarsometatarsal joint of left Lane Bhandari MD foot, initial encounter 12/10/2018 S92.345A Nondisplaced fracture of fourth metatarsal Jeaneth [place] , RPA-C bone, left foot, initial encounter for closed fracture 12/10/2018 S92.322A Displaced fracture of second metatarsal bone, Jeaneth [place], RPA-C left foot, initial encounter for closed fracture 12/10/2018 S92.232A Displaced fracture of intermediate cuneiform Jeaneth [place], RPA-C of left foot, initial encounter for closed fracture 12/10/2018 S92.322A Displaced fracture of second metatarsal bone, Lane Bhandari MD left foot, initial encounter for closed fracture 12/10/2018 S82.65xA Nondisplaced fracture of lateral malleolus of Jeaneth [place], RPA-C left fibula, initial encounter for closed fracture 12/10/2018 S92.332A Displaced fracture of third metatarsal bone, Jeaneth [place], RPA-C left foot, initial encounter for closed [...] 9:45 am - Lane Bhandari MD at [facility] at [id number]/22/2019 - Traci Ann MD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, unspecifiedNew Orders:Home Sleep Testing, Ordered: 01/22/19G47.00 Insomnia, unspecified Functional Status Description No Information Available Mental Status Description No Information Available Referrals Description No Information Available
[2019-02-09 07:42] VITALS: BP 0/0
== END 2019-02-09 07:41 ==
LOC: ED 23:33
DX: F10.929 Alcohol use, unspecified with intoxication, unspecified (principal); E03.9 Hypothyroidism, unspecified; F41.9 Anxiety disorder, unspecified; F32.9 Major depressive disorder, single episode, unspecified; F17.200 Nicotine dependence, unspecified, uncomplicated; Z79.899 Other long term (current) drug therapy; Z90.89 Acquired absence of other organs
CPT/HCPCS: 36415; 80053; 80320; 80329; 81003; 83605; 85025; 86140; 96360; 96361; 99283; G0480

== ENCOUNTER 2019-03-16 12:35 | Emergency (ER) | payer SELFPAY ==
--- OUTSIDE RECORDS SUMMARY | 2019-03-16 12:49 | XMS REPORT | Continuity of Care Document ---
:1960 External Reference #:[id number] Author Name Carmelina Funes NP (transmitted by agent of provider Sakina Anne) Address [address] [place] [address] Care Team Providers Name Role Phone Floyd Arriaga MD - Family Medicine Care Team Information Heel Padder Problems Active Problems Provider Date Closed fracture of metatarsal bone Lane Bhandari MD Onset: 11/30/2018 Closed fracture of lateral malleolus Lane Bhandari MD Onset: 12/07/[address] Bhandari MD Onset: 01/15/2019 Social History Type Date Description Comments Sex Unknown Tobacco Use Start: Unknown Current Cigarette 35 years Smoker 1 Pack Daily Smoking Status Reviewed: 02/24/19 Current Cigarette 35 years Smoker 1 Pack [...] 24HR Ibuprofen 2 by mouth daily Unknown Keflex 1 tab by mouth Unknown 500mg Capsules two times a day History Medications Cephalexin 1 tab every six 60tabs T81.30xA Lane Bhandari MD 02/05/2019 - 250mg hours 02/15/2019 Tablets Cephalexin 1 tab by mouth 40tabs S92.322A [...] Available Vital Signs Date Vital Result Comment 02/24/2019 1:17pm Height 69 inches 5'9" Weight 188.00 lb per pt with boot Heart Rate 72 /min BP Systolic Sitting 146 mmHg BP Diastolic Sitting 82 mmHg Respiratory Rate 14 /min Body Temperature 98.4 F BMI (Body Mass Index) 27.8 kg/m2 02/22/2019 1:13pm Height 69 inches 5'9" Weight 183.00 lb Heart Rate 89 /min BP Systolic 150 mmHg BP Diastolic 70 mmHg Respiratory Rate 18 /min Body Temperature 97.6 F Pain Level 8 BMI (Body Mass Index) 27.0 kg/m2 Results Description No Information Available Procedures Date Code Description Status 01/19/2019 09745 Negative Pressure Wound Therapy Less Than 50 Square CM Completed 01/19/2019 23538 Negative Pressure Wound Therapy Less Than 50 Square CM Completed 01/19/201912874 Removal Implant Deep Wire,Screw Nail,Gonzalo Or Plate Completed 01/19/201935337 Removal Implant Deep Wire,Screw Nail,Gonzalo Or Plate Completed 01/15/2019 78956 application of short leg splint Completed 01/01/2019 31524 Short Leg Cast Completed 12/25/2018 94570 Short Leg Cast Completed 12/11/2018 55672 application of short leg splint Completed 12/10/2018 59716 Dislocation Tarsometatarsal JT W/Wo Fixation Open [place] Completed 12/10/2018 69507 Dislocation Tarsometatarsal JT W/Wo Fixation Open TX Completed 12/10/2018 73953 Dislocation Tarsometatarsal JT W/Wo Fixation Open TX Completed 12/10/2018 58531 Open TX Metatarsal FX,Incl Intl Fixation When Performed Completed 12/10/2018 36875 FX Metatarsal Care Completed 12/10/2018 84457 FX Metatarsal Care Completed 12/10/2018 41650 Open TX Tarsal Bone FX(Except Talus & Calcaneus) Incl Completed Fixation Medical Devices Description No Information Available Encounters Type Date Location Provider Dx Diagnosis Office Visit 01/22/2019 [facility] Traci Ann, 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, 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 G47.00 Insomnia, unspecified Office Visit 12/07/2018 Jelly Bhandari, S92.322A Disp fx of 8:15a [facility] [place] metatarsal bone, left foot, init S92.332A Disp fx of third metatarsal bone, left foot, init S92.345A Nondisp fx of fourth metatarsal bone, left foot, init S82.65xA Nondisp fx of lateral malleolus of left fibula, init Office Visit 11/30/2018 Jelly Bhandari, S92.322A Disp fx of 11:15a [facility] [place] metatarsal bone, left foot, init Assessments Date Code Description Provider 02/24/2019 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 02/24/2019 Z71.6 Tobacco abuse counseling Carmelina Funes NP 02/22/2019 T81.30xD Disruption of wound, unspecified, Lane Bhandari MD subsequent encounter 02/05/2019 T81.30xD Disruption of wound, unspecified, Lane Bhandari MD subsequent encounter 01/26/2019 T81.30xA Disruption of wound, unspecified, Lane Bhandari MD initial encounter 01/22/2019 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, unspecified Traci Ann MD 01/22/2019 G47.00 Insomnia, unspecified Traci Ann MD 01/19/2019 T81.30xA Disruption of wound, unspecified, Jeaneth Boyd RPA-C initial encounter 01/19/2019 T81.30xA Disruption of wound, unspecified, Lane Bhandari MD initial encounter 01/15/2019 S92.332A Displaced fracture of third Lane Bhandari, metatarsal bone, left foot, initial encounter for closed fracture 01/15/2019 S92.345A Nondisplaced fracture of fourth Lane Bhandari, metatarsal bone, left foot, initial encounter for closed fracture 01/15/2019 S92.232A Displaced fracture of intermediate Lane Bhandari, cuneiform of left foot, initial encounter for closed fracture 01/15/[address] Nondisplaced fracture of lateral Lane Bhandari, malleolus of left fibula, initial encounter for closed fracture 01/15/2019 S93.325A Dislocation of tarsometatarsal joint Lane Bhandari MD of left foot, initial encounter 01/15/2019 T81.30xA Disruption of wound, unspecified, Lane Bhandari MD initial encounter 01/01/2019 S92.322A Displaced fracture of second Lane Bhandari, metatarsal bone, left foot, initial encounter for closed fracture 01/01/2019 S92.332A Displaced fracture of third Lane Bhandari, metatarsal bone, left foot, initial encounter for closed fracture 01/01/2019 S92.345A Nondisplaced fracture of fourth Lane Bhandari, metatarsal bone, left foot, initial encounter for closed fracture 01/01/2019 S92.232A Displaced fracture of intermediate Lane Bhandari, cuneiform of left foot, initial encounter for closed fracture 01/01/[address] Nondisplaced fracture of lateral Lane Bhandari, malleolus of left fibula, initial encounter for closed fracture 01/01/2019 S93.325A Dislocation of tarsometatarsal joint Lane Bhandari MD of left foot, initial encounter 12/25/2018 S92.322A Displaced fracture of second Lane Bhandari, metatarsal bone, left foot, initial encounter for closed fracture 12/25/2018 S92.332A Displaced fracture of third Lane Bhandari, metatarsal bone, left foot, initial encounter for closed fracture 12/25/2018 S92.345A Nondisplaced fracture of fourth Lane Singhulay, metatarsal bone, left foot, initial encounter for closed fracture 12/25/2018 S92.232A Displaced fracture of intermediate Lane Bhandari, cuneiform of left foot, initial encounter for closed fracture 12/25/2018 S82.65xA Nondisplaced fracture of lateral Lane Singhulay, malleolus of left fibula, initial encounter for closed fracture 12/11/2018 S93.325A Dislocation of tarsometatarsal joint Lane Bhandari MD of left foot, initial encounter 12/11/2018 S92.322A Displaced fracture of second Lane Singhulay, metatarsal bone, left foot, initial encounter for closed fracture 12/11/2018 S92.332A Displaced fracture of third Lane Singhulay, metatarsal bone, left foot, initial encounter for closed fracture 12/11/2018 S92.345A Nondisplaced fracture of fourth Lane Thony, metatarsal bone, left foot, initial encounter for closed fracture 12/11/2018 S92.232A Displaced fracture of intermediate Lane Singhulay, cuneiform of left foot, initial encounter for closed fracture 12/11/2018 S82.65xA Nondisplaced fracture of lateral Lane Singhulay, malleolus of left fibula, initial encounter for closed fracture 12/10/2018 S92.322A Displaced fracture of second Jeaneth Deb, RPA-C metatarsal bone, left foot, initial encounter for closed fracture 12/10/2018 S93.325A Dislocation of tarsometatarsal joint Jeaneth Industry, RPA-C of left foot, initial encounter 12/10/2018 S92.332A Displaced fracture of third Jeaneth Industry, RPA-C metatarsal bone, left foot, initial encounter for closed fracture 12/10/2018 S93.325A Dislocation of tarsometatarsal joint Lane Bhandari MD of left foot, initial encounter 12/10/2018 S92.345A Nondisplaced fracture of fourth Jeaneth Deb, RPA-C metatarsal bone, left foot, initial encounter for closed fracture 12/10/2018 S92.322A Displaced fracture of second Jeaneth Industry, RPA-C metatarsal bone, left foot, initial encounter for closed fracture 12/10/2018 S92.232A Displaced fracture of intermediate Jeaneth Industry, RPA-C cuneiform of left foot, initial encounter for closed fracture 12/10/2018 S92.322A Displaced fracture of second Lane Thony, MD metatarsal bone, left foot, initial encounter for closed fracture 12/10/2018 S82.65xA Nondisplaced fracture of lateral Jeaneth Industry, RPA-C malleolus of left fibula, initial encounter for closed fracture 12/10/2018 S92.332A Displaced fracture of third Jeaneth Industry, RPA-C metatarsal bone, left foot, initial encounter for closed fracture 12/10/2018 S92.332A Displaced fracture of third Lane Thony, MD metatarsal bone, left foot, initial encounter for closed fracture 12/10/2018 S92.345A Nondisplaced fracture of fourth Jeaneth Deb, RPA-C metatarsal bone, left foot, initial encounter for closed fracture 12/10/2018 S92.345A Nondisplaced fracture of fourth Lane Thony, MD metatarsal bone, left foot, initial encounter for closed fracture 12/10/2018 S92.232A Displaced fracture of intermediate Jeaneth Industry, RPA-C cuneiform of left foot, initial encounter for closed fracture 12/10/2018 S92.232A Displaced fracture of intermediate Lane Thony, MD cuneiform of left foot, initial encounter for closed fracture 12/10/2018 S82.65xA Nondisplaced fracture of lateral Jeaneth Deb, RPA-C malleolus of left fibula, initial encounter for closed fracture 12/07/2018 S92.322A Displaced fracture of second Lane Thony, MD metatarsal bone, left foot, initial encounter for closed fracture 12/07/2018 S92.332A Displaced fracture of third Lane Thony, MD metatarsal bone, left foot, initial encounter for closed fracture 12/07/2018 S92.345A Nondisplaced fracture of fourth Lane Thony, MD metatarsal bone, left foot, initial encounter for closed fracture 12/07/2018 S82.65xA Nondisplaced fracture of lateral Lane Thony, MD malleolus of left fibula, initial encounter for closed fracture 11/30/2018 S92.322A Displaced fracture of second Lane Bhandari MD metatarsal bone, left foot, initial encounter for closed fracture Plan of Treatment Future Appointment(s):03/11/2019 10:00 am - Carmelina Funes NP at [facility] Ysbrqlsq48/24/2020 10:30 am - Lane Bhandari MD at [facility]c5002/24/2019 - Carmelina Funes, NPL97.521 Non -prs chronic ulcer oth prt l foot limited to brkdwn skinNew Labs:Wound Culture/ Sensi, Ordered: 02/24/19New Xrays:VL Ank/Brachial Indices, Ordered: Follow up:2 [id number] Tobacco abuse counselingComments:Recommend that you stop smoking, this will help with wound healing Functional Status Description No Information Available Mental Status Description No Information Available Referrals Refer to Dr Reason for Referral Status Appt Date Wound Clinic chronic post surgical wound left foot Created [address] [place] [address] [phone] Tucker Rodríguez MD wound care request. S/p 12/10/18 - Left Created midfoot open reduction and internal fixation 01/19/19 - Left foot I&D, GUILLE, wound [facility] [address] [place] [address] [place] [id number] [phone]
--- OUTSIDE RECORDS SUMMARY | 2019-03-16 12:49 | XMS REPORT | Continuity of Care Document ---
:1960 External Reference #:[id number] Author Name Carmelina Funes NP (transmitted by agent of provider Jeaneth Montaño) Address [address] [place] [address] Care Team Providers Name Role Phone Floyd Arriaga MD - Family Medicine Care Team Information Social Professionals Problems Active Problems Provider Date Closed fracture [...] Denies Drug Use Exercise Type/Frequency Exercises regularly NautSen[employer]age[employer] machines, weight room, walking, swimming Allergies, Adverse Reactions, Alerts Description No Known Drug Allergies Medications Active Medications SIG Qnty Indications Ordering Provider Date Synthroid 1 by mouth every Unknown 125mcg Tablets day Seroquel 1 by mouth daily Unknown 200mg Tablets Effexor XR 3 by mouth once Unknown 75mg Caps ER daily 24HR Ibuprofen 2 by mouth daily Unknown Keflex 1 tab by mouth Unknown 500mg Capsules two times a day Oxycodone HCL 2 tabs by mouth Unknown 5mg Tablets every 4 hours as needed for pain >6/10 History Medications Cephalexin 1 tab every six [address] T81.30xA Lane Bhandari MD 02/05/2019 - 250mg hours 02/15/2019 Tablets Cephalexin 1 tab by mouth 40tabs S92.322A Lane Bhandari MD 01/15/2019 - 250mg every six hours 01/21/2019 Tablets x 10 days Cephalexin 1 tab every six [address] Lane Bhandari MD 12/25/2018 - 250mg hours 01/04/2019 Tablets Oxycodone HCL [address] tabs by mouth [address] Bhandari MD 12/10/2018 - 5mg every 6 hours 02/23/2019 Tablets as needed Xarelto take one tab 30tabs Lane Bhandari [...] Available Procedures Date Code Description Status 01/19/2019 59237 Negative Pressure Wound Therapy Less Than 50 Square CM Completed 01/19/2019 54291 Negative Pressure Wound Therapy Less Than 50 Square CM Completed 01/19/2019 53310 Removal Implant Deep Wire,Screw Nail,Gonzalo Or Plate Completed 01/19/2019 87420 Removal Implant Deep Wire,Screw Nail,Gonzalo Or Plate Completed 01/15/2019 12240 application of short leg splint Completed 01/01/2019 61282 Short Leg Cast Completed 12/25/2018 70287 Short Leg Cast Completed 12/11/2018 30956 application of short leg splint Completed 12/10/2018 46785 Dislocation Tarsometatarsal JT W/Wo Fixation Open TX Completed 12/10/2018 48249 Dislocation Tarsometatarsal JT W/Wo Fixation Open TX Completed 12/10/2018 73010 Dislocation Tarsometatarsal JT W/Wo Fixation Open TX Completed 12/10/2018 15266 Open TX Metatarsal FX,Incl Intl Fixation When Performed Completed 12/10/2018 17888 FX Metatarsal Care Completed 12/10/2018 99793 FX Metatarsal Care Completed 12/10/2018 06670 Open TX Tarsal Bone FX(Except Talus & Calcaneus) Incl Completed Fixation Medical Devices Description No Information Available Encounters Type Date Location Provider Dx Diagnosis Office Visit 01/22/2019 [facility] Traci Ann, 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, 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 G47.00 Insomnia, unspecified Office Visit 12/07/2018 Jelly Bhandari, S92.322A Disp fx of 8:15a [facility] [place] metatarsal bone, left foot, init S92.332A Disp fx of third metatarsal bone, left foot, init S92.345A Nondisp fx of fourth metatarsal bone, left foot, init S82.65xA Nondisp fx of lateral malleolus of left fibula, init Office Visit 11/30/2018 Jelly Bhandari, S92.322A Disp fx of 11:15a [facility] [place] metatarsal bone, left foot, init Assessments Date [...] MD 01/19/2019 T81.30xA Disruption of wound, unspecified, MARGRET Cardoso initial encounter 01/19/2019 T81.30xA Disruption of wound, unspecified, Lane Bhandari MD initial encounter 01/15/2019 S92.332A Displaced fracture of third Lane Bhandari MD metatarsal bone, left foot, initial encounter for closed fracture 01/15/2019 S92.345A Nondisplaced fracture of fourth Lane Bhandari MD metatarsal bone, left foot, initial encounter for closed fracture 01/15/2019 S92.232A Displaced fracture of intermediate Lane Bhandari MD cuneiform of left foot, initial encounter for closed fracture 01/15/[address] Nondisplaced fracture of lateral Lane Bhandari MD malleolus of left fibula, initial encounter for closed fracture 01/15/2019 S93.325A Dislocation of tarsometatarsal joint Lane Bhandari MD of left foot, initial encounter 01/15/2019 T81.30xA Disruption of wound, unspecified, Lane Bhandari MD initial encounter 01/01/2019 S92.322A Displaced fracture of second Lane Bhandari MD metatarsal bone, left foot, initial encounter for closed fracture 01/01/2019 S92.332A Displaced fracture of third Lane Bhandari MD metatarsal bone, left foot, initial encounter for closed fracture 01/01/2019 S92.345A Nondisplaced fracture of fourth Lane Bhandari MD metatarsal bone, left foot, initial encounter for closed fracture 01/01/2019 S92.232A Displaced fracture of intermediate Lane Bhandari MD cuneiform of left foot, initial encounter for closed fracture 01/01/2019 S82.65[address] Nondisplaced fracture of lateral Lane Bhandari MD malleolus of left fibula, initial encounter for closed fracture 01/01/2019 S93.325A Dislocation of tarsometatarsal joint Lane Bhandari MD of left foot, initial encounter 12/25/2018 S92.322A Displaced fracture of second Lane Bhandari MD metatarsal bone, left foot, initial encounter for closed fracture 12/25/2018 S92.332A Displaced fracture of third Lane Bhandari, metatarsal bone, left foot, initial encounter for closed fracture 12/25/2018 S92.345A Nondisplaced fracture of fourth Lane Bhandari, MD metatarsal bone, left foot, initial encounter for closed fracture 12/25/2018 S92.232A Displaced fracture of intermediate Lane Bhandari, MD cuneiform of left foot, initial encounter for closed fracture 12/25/2018 S82.65xA Nondisplaced fracture of lateral Lane Bhandari, MD malleolus of left fibula, initial encounter for closed fracture 12/11/2018 S93.325A Dislocation of tarsometatarsal joint Lane Bhandari MD of left foot, initial encounter 12/11/2018 S92.322A Displaced fracture of second Lane Bhandari, MD metatarsal bone, left foot, initial encounter for closed fracture 12/11/2018 S92.332A Displaced fracture of third Lane Bhandari, MD metatarsal bone, left foot, initial encounter for closed fracture 12/11/2018 S92.345A Nondisplaced fracture of fourth Lane Bhandari, MD metatarsal bone, left foot, initial encounter for closed fracture 12/11/2018 S92.232A Displaced fracture of intermediate Lane Bhandari, MD cuneiform of left foot, initial encounter for closed fracture 12/11/2018 S82.65xA Nondisplaced fracture of lateral Lane Bhandari, MD malleolus of left fibula, initial encounter for closed fracture 12/10/2018 S92.322A Displaced fracture of second Jeaneth Deb, RPA-C metatarsal bone, left foot, initial encounter for closed fracture 12/10/2018 S93.325A Dislocation of tarsometatarsal joint Jeaneth Boyd, RPA-C of left foot, initial encounter 12/10/2018 S92.332A Displaced fracture of third Jeaneth Deb, RPA-C metatarsal bone, left foot, initial encounter for closed fracture 12/10/2018 S93.325A Dislocation of tarsometatarsal joint Lane Bhandari MD of left foot, initial encounter 12/10/2018 S92.345A Nondisplaced fracture of fourth Jeaneth Deb, RPA-C metatarsal bone, left foot, initial encounter for closed fracture 12/10/2018 S92.322A Displaced fracture of second Jeaneth Rickreall, RPA-C metatarsal bone, left foot, initial encounter for closed fracture 12/10/2018 S92.232A Displaced fracture of intermediate Jeaneth Deb, RPA-C cuneiform of left foot, initial encounter for closed fracture 12/10/2018 S92.322A Displaced fracture of second Lane Thony, MD metatarsal bone, left foot, initial encounter for closed fracture 12/10/2018 S82.65xA Nondisplaced fracture of lateral Jeaneth Deb, RPA-C malleolus of left fibula, initial encounter for closed fracture 12/10/2018 S92.332A Displaced fracture of third Jeaneth Rickreall, RPA-C metatarsal bone, left foot, initial encounter for closed fracture 12/10/2018 S92.332A Displaced fracture of third Lane Thony, MD metatarsal bone, left foot, initial encounter for closed fracture 12/10/2018 S92.345A Nondisplaced fracture of fourth Jeaneth Rickreall, RPA-C metatarsal bone, left foot, initial encounter for closed fracture 12/10/2018 S92.345A Nondisplaced fracture of fourth Lane Thony, MD metatarsal bone, left foot, initial encounter for closed fracture 12/10/2018 S92.232A Displaced fracture of intermediate Jeaneth Deb, RPA-C cuneiform of left foot, initial encounter [...] 12/07/2018 S[address].65[address] Nondisplaced fracture of lateral Lane Bhandari MD malleolus of left fibula, initial encounter for closed fracture 11/30/2018 S92.322A Displaced fracture of second Lane Bhandari MD metatarsal bone, left foot, initial encounter for closed fracture Plan of Treatment Future Appointment(s):03/11/2019 10:00 am - Carmelina Funes NP at [facility] Ataeilzx52/24/2020 10:30 am - Lane Bhandari MD at [facility] at [facility]1902/24/2019 - Carmelina Funes, NPL97.521 Non -prs chronic ulcer oth prt l foot limited to brkdwn skinNew Xrays:VL Ank/ Brachial Indices, Ordered: 02/24/19Comments:Please call the office for increased redness, swelling or drainage from the wound; fever, or diarrhea.Follow up:2 jpxalV23.6 Tobacco abuse counselingComments:Recommend that you stop smoking, this will help with wound healing Functional Status Description No Information Available Mental Status Description No Information Available Referrals Refer to Reason for Referral Status Appt Date Wound Clinic chronic post surgical wound left foot Created [address] [place] [id number] [phone] Tucker Rodríguez MD wound care request. S/p 12/10/18 - Left Created midfoot open reduction and internal fixation 01/19/19 - Left foot I&D, GUILLE, wound [facility] [address] [place] [address] [place] [address] [phone]
--- OUTSIDE RECORDS SUMMARY | 2019-03-16 12:49 | XMS REPORT | Continuity of Care Document ---
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 [phone] Problems Active Problems Provider Date Closed fracture [...] Denies Drug Use Exercise Type/Frequency Exercises regularly Nautinthincus machines, weight room, walking, swimming Allergies, Adverse [...] Available Procedures Date Code Description Status 01/19/2019 86560 Negative Pressure Wound Therapy Less Than 50 Square CM Completed 01/19/2019 01716 Negative Pressure Wound Therapy Less Than 50 Square CM Completed 01/19/2019 61159 Removal Implant Deep Wire,Screw Nail,Gonzalo Or Plate Completed 01/19/2019 51739 Removal Implant Deep Wire,Screw Nail,Gonzalo Or Plate Completed 01/15/2019 79313 application of short leg splint Completed 01/01/2019 40683 Short Leg Cast Completed 12/25/2018 15800 Short Leg Cast Completed 12/11/2018 99561 application of short leg splint Completed 12/10/2018 03532 Dislocation Tarsometatarsal JT W/Wo Fixation Open TX Completed 12/10/2018 55413 Dislocation Tarsometatarsal JT W/Wo Fixation Open TX Completed 12/10/2018 09080 Dislocation Tarsometatarsal JT W/Wo Fixation Open TX Completed 12/10/2018 70465 Open TX Metatarsal FX,Incl Intl Fixation When Performed Completed 12/10/2018 39204 FX Metatarsal Care Completed 12/10/2018 36846 FX Metatarsal Care Completed 12/10/2018 07221 Open TX Tarsal Bone FX(Except Talus & Calcaneus) Incl Completed Fixation Medical Devices Description No Information Available Encounters Type Date Location Provider Dx Diagnosis Office Visit 01/22/2019 Pulmonology And Traci Ann, 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, 1:30p 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 G47.00 Insomnia, unspecified Office Visit 12/07/2018 Jelly Bhandari, S92.322A Disp fx of 8:15a [facility] [place] metatarsal bone, left foot, init S92.332A Disp fx of third metatarsal bone, left foot, init S92.345A Nondisp fx of fourth metatarsal bone, left foot, init S82.65xA Nondisp fx of lateral malleolus of left fibula, init Office Visit 11/30/2018 Jelly Bhandari, S92.322A Disp fx of 11:15a [facility] [place] metatarsal bone, left foot, init Assessments Date [...] encounter 01/01/2019 S92.322A Displaced fracture of second aLne Bhandari MD metatarsal bone, left foot, initial [...] 12/11/2018 S92.345A Nondisplaced fracture of fourth Lane Bhadnari, MD metatarsal bone, left foot, initial encounter [...] 12/10/2018 S92.322A Displaced fracture of second Jeaneth [place], RPA-C metatarsal bone, left foot, initial encounter [...] 12/10/2018 S92.332A Displaced fracture of third Jeaneth [place], RPA-C metatarsal bone, left foot, initial encounter for closed fracture 12/10/2018 S92.332A Displaced fracture of third Lane Thony, MD metatarsal bone, left foot, initial encounter for closed fracture 12/10/2018 S92.345A Nondisplaced fracture of fourth Jeaneth [place], RPA-C metatarsal bone, left foot, initial encounter [...] 10:00 am - Carmelina Funes NP at [facility] Jcxlgqua38/24/2020 10:30 am - Lane Bhandari MD at [facility] at [facility]0902/24/2019 - Carmelina Funes, NPL97.521 Non -prs chronic ulcer oth prt l foot limited to brkdwn skinNew Xrays:VL Ank/ Brachial Indices, Ordered: 02/24/19Comments:Please call the office for increased redness, swelling or drainage from the wound; fever, or diarrhea.Follow up:2 [id number] Tobacco abuse counselingComments:Recommend that you stop smoking, this will help with wound healing Functional Status Description No Information Available Mental Status Description No Information Available Referrals Refer to Reason for Referral Status Appt Date Wound Clinic chronic post surgical wound left foot Created [address] [place] [address] [phone] Tucker Rodríguez MD wound care request. S/p 12/10/18 - Left Created midfoot open reduction and internal fixation 01/19/19 - Left foot I&D, GUILLE, wound [facility] [address] [place] [address] [place] [address] [phone]
--- OUTSIDE RECORDS SUMMARY | 2019-03-16 12:49 | XMS REPORT | Continuity of Care Document ---
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 [phone] Problems Active Problems Provider Date Closed fracture of metatarsal bone Lane Bhandari MD Onset: 11/30/2018 Closed fracture of lateral malleolus Lane Bhandari MD Onset: 12/07/[address] Bhandari MD Onset: 01/15/2019 Social History Type Date Description Comments Sex Unknown Tobacco Use Start: Unknown Current Cigarette 35 years Smoker 1 Pack Daily Smoking Status Reviewed: 02/22/19 Current Cigarette 35 years Smoker 1 Pack [...] 100mg Capsules History Medications Cephalexin 1 tab every six [...] Available Vital Signs Date Vital Result Comment 02/22/2019 1:13pm Height 69 inches 5'9" Weight 183.00 lb Heart Rate 89 /min BP Systolic 150 mmHg BP Diastolic 70 mmHg Respiratory Rate 18 /min Body Temperature 97.6 F Pain Level 8 BMI (Body Mass Index) 27.0 kg/m2 02/05/2019 9:20am Height 69 inches 5'9" Weight 182.00 lb Heart Rate 108 /min Respiratory Rate 16 /min Body Temperature 97.4 F Pain Level 8 BMI (Body Mass Index) 26.9 kg/m2 Results Description No Information Available Procedures Date Code Description Status 01/19/2019 86478 Negative Pressure Wound Therapy Less Than 50 Square CM Completed 01/19/2019 21571 Negative Pressure Wound Therapy Less Than 50 Square CM Completed 01/19/201990477 Removal Implant Deep Wire,Screw Nail,Gonzalo Or Plate Completed 01/19/2019 73772 Removal Implant Deep Wire,Screw Nail,Gonzalo Or Plate Completed 01/15/2019 74553 application of short leg splint Completed 01/01/2019 68183 Short Leg Cast Completed 12/25/2018 16922 Short Leg Cast Completed 12/11/2018 10241 application of short leg splint Completed 12/10/2018 83551 Dislocation Tarsometatarsal JT W/Wo Fixation Open TX Completed 12/10/2018 97343 Dislocation Tarsometatarsal JT W/Wo Fixation Open TX Completed 12/10/2018 63413 Dislocation Tarsometatarsal JT W/Wo Fixation Open TX Completed 12/10/2018 56785 Open TX Metatarsal FX,Incl Intl Fixation When Performed Completed 12/10/2018 15321 FX Metatarsal Care Completed 12/10/2018 32202 FX Metatarsal Care Completed 12/10/2018 17992 Open TX Tarsal Bone FX(Except Talus & Calcaneus) Incl Completed Fixation Medical Devices Description No Information Available Encounters Type Date Location Provider Dx Diagnosis Office Visit 01/22/2019 [facility] Traci Ann, 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, 1:30p 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 G47.00 Insomnia, unspecified Office Visit 12/07/2018 Jelly Bhandari, S92.322A Disp fx of 8:15a [facility] [place] metatarsal bone, left foot, init S92.332A Disp fx of third metatarsal bone, left foot, init S92.345A Nondisp fx of fourth metatarsal bone, left foot, init S82.65xA Nondisp fx of lateral malleolus of left fibula, init Office Visit 11/30/2018 Jelly Bhandari, S92.322A Disp fx of 11:15a [facility] [place] metatarsal bone, left foot, init Assessments Date Code Description Provider 02/22/2019 T81.30xD Disruption of wound, unspecified, subsequent Lane Bhandari MD encounter 02/05/2019 T81.30xD Disruption of wound, unspecified, subsequent Lane Bhandari MD encounter 01/26/2019 T81.30xA Disruption [...] Displaced fracture of second metatarsal bone, Jeaneth Boyd, RPA-C left foot, initial encounter for closed fracture 12/10/2018 S93.325A Dislocation of tarsometatarsal joint of left Jeaneth Deb, RPA-C foot, initial encounter 12/10/2018 S92.332A Displaced fracture of third metatarsal bone, Jeaneth Sumner, RPA-C left foot, initial encounter for closed [...] Nondisplaced fracture of lateral malleolus of Jeaneth Sum[place], RPA-C left fibula, initial encounter for closed fracture 12/10/2018 S92.332A Displaced fracture of third metatarsal bone, Jeaneth Deb, RPA-C left foot, initial encounter for closed fracture 12/10/2018 S92.332A Displaced fracture of third metatarsal bone, Lane Bhandari MD left foot, initial encounter for closed fracture 12/10/2018 S92.345A Nondisplaced fracture of fourth metatarsal Jeaneth Sumner , RPA-C bone, left foot, initial encounter [...] Nondisplaced fracture of lateral malleolus of Jeaneth Sumner, RPA-C left fibula, initial encounter for closed [...] for closed fracture Plan of Treatment Future Appointment(s):02/24/2019 1:30 pm - Carmelina Funes NP at [facility] Dwdiljep45/06/2020 - Lane Bhandari MDT81.30xD Disruption of wound, unspecified, subsequent encounterFollow up:Follow Up: 2 weeks Functional Status Description No Information Available Mental Status Description No Information Available Referrals Refer to Dr Reason for Referral Status Appt Date Tucker Rodríguez MD wound care request. S/p 12/10/18 - Left Created midfoot open reduction and internal fixation 01/19/19 - Left foot I&D, GUILLE, wound [facility] [address] [place] [address] [place] [address] [phone]
--- OUTSIDE RECORDS SUMMARY | 2019-03-16 12:49 | XMS REPORT | Continuity of Care Document ---
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 Problems Active Problems Provider Date Closed fracture [...] Available Procedures Date Code Description Status 01/19/2019 76278 Negative Pressure Wound Therapy Less Than 50 Square CM Completed 01/19/2019 73798 Negative Pressure Wound Therapy Less Than 50 Square CM Completed 01/19/2019 68949 Removal Implant Deep Wire,Screw Nail,Gonzalo Or Plate Completed 01/19/201939775 Removal Implant Deep Wire,Screw Nail,Gonzalo Or Plate Completed 01/15/2019 53411 application of short leg splint Completed 01/01/2019 70363 Short Leg Cast Completed 12/25/2018 56769 Short Leg Cast Completed 12/11/2018 09842 application of short leg splint Completed 12/10/2018 03728 Dislocation Tarsometatarsal JT W/Wo Fixation Open TX Completed 12/10/2018 51514 Dislocation Tarsometatarsal JT W/Wo Fixation Open TX Completed 12/10/2018 94159 Dislocation Tarsometatarsal JT W/Wo Fixation Open TX Completed 12/10/2018 06895 Open TX Metatarsal FX,Incl Intl Fixation When Performed Completed 12/10/2018 94860 FX Metatarsal Care Completed 12/10/2018 04059 FX Metatarsal Care Completed 12/10/2018 38244 Open TX Tarsal Bone FX(Except Talus & Calcaneus) Incl Completed Fixation Medical Devices Description No Information Available Encounters Type Date Location Provider Dx Diagnosis Office Visit 01/22/2019 Pul[facility]ology And Traci Ann, 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, 1:30p 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 G47.00 Insomnia, unspecified Office Visit 12/07/2018 Jelly Bhandari, S92.322A Disp fx of 8:15a [facility]oped[facility] at [facility] [place] metatarsal bone, left foot, init S92.332A Disp fx of third metatarsal bone, left foot, init S92.345A Nondisp fx of fourth metatarsal bone, left foot, init S82.65xA Nondisp fx of lateral malleolus of left fibula, init Office Visit 11/30/2018 Jelly Bhandari, S92.322A Disp fx of 11:15a [facility] at [facility] [place] metatarsal bone, left foot, init Assessments Date [...] 12/10/2018 S93.325A Dislocation of tarsometatarsal joint Jeaneth [place], RPA-C of left foot, initial encounter 12/10/2018 S92.332A Displaced fracture of third Jeaneth [place], RPA-C metatarsal bone, left foot, initial encounter for closed fracture 12/10/2018 S93.325A Dislocation of tarsometatarsal joint Lane Bhandari MD of left foot, initial encounter 12/10/2018 S92.345A Nondisplaced fracture of fourth Jeaneth Deb, RPA-C metatarsal bone, left foot, initial encounter for closed fracture 12/10/2018 S92.322A Displaced fracture of second Jeaneth [place], RPA-C metatarsal bone, left foot, initial encounter for closed fracture 12/10/2018 S92.232A Displaced fracture of intermediate Jeaneth [place], RPA-C cuneiform of left foot, initial encounter for closed fracture 12/10/2018 S92.322A Displaced fracture of second Lane Thony, MD metatarsal bone, left foot, initial encounter for closed fracture 12/10/2018 S82.65xA Nondisplaced fracture of lateral Jeaneth [place], RPA-C malleolus of left fibula, initial encounter for closed fracture 12/10/2018 S92.332A Displaced fracture of third Jeaneth [place], RPA-C metatarsal bone, left foot, initial encounter [...] 12/10/2018 S92.232A Displaced fracture of intermediate Jeaneth [place], RPA-C cuneiform of left foot, initial encounter [...] 10:00 am - Carmelina Funes NP at [facility] Hsxsyeju46/24/2020 10:30 am - Lane Bhandari MD at [facility] at [facility]2702/24/2019 - Carmelina Funes, NPL97.521 Non -prs chronic ulcer oth prt l foot limited to brkdwn skinNew Xrays:VL Ank/ Brachial Indices, Ordered: 02/24/19Follow up:2 mntpaP41.6 Tobacco abuse counselingComments:Recommend that you stop smoking, this will help with wound healing Functional Status Description No Information Available Mental Status Description No Information Available Referrals Refer to Reason for Referral Status Appt Date Wound Clinic chronic post surgical wound left foot Created [address] [place] [address] [phone] Tucker Rodríguez MD wound care request. S/p 12/10/18 - Left Created midfoot open reduction and internal fixation 01/19/19 - Left foot I&D, GUILLE, wound [facility] [address] [place] [address] [place] [address] [phone]
--- NOTE | 2019-03-16 16:09 | ED ---
Neurological HPI - HPI Summary HPI Summary: 58 year old M arriving via private car complains intermittent episodes of neurological symptoms that started several days ago. Patient had an episode several days ago at night while he was sleeping during which he was unable to move or figure out where he was. Patient states this episode lasted 10 minutes. Patient states he also rolled off the edge of the bed that same night. Patient states that several days after that, he had a difficult time focusing and keeping his balance. Patient states he has had several similar episodes after the first one during which nothing makes sense to him, he feels very foggy, and he is unable to figure out where he is. Patient reports left sided facial numbness, burning sensation and tingliness and pain in both his legs, right foot numbness, blurred vision, fatigue, dizziness, light headedness. This morning, he woke up and was unable to bend his fingers because they "like they were full of concrete. No headache, facial droop, facial weakness, forehead numbness, decreased appetite. He additionally notes intermittent chest pain for several weeks. Pain rated 8/10 in severity. Symptoms aggravated by nothing. Symptoms alleviated by nothing. Medications reviewed. Allergies noted. Patient is visiting from [place]. No hx tick bites. No hx Lyme disease. Hx depression. Patient states that he has been seeing orthopedics after injuring his left foot. - History of Current Complaint Chief Complaint: EDNeurologicalDeficit Stated Complaint: NUMBNESS IN FACE/HARD TO STAND PER PT Time Seen by Provider: 03/16/19 15:59 Hx Obtained From: Patient Onset/Duration: Started days ago, Still Present Timing: Intermittent Episodes Lasting: Current Severity: Severe Pain Intensity: 8 Pain Scale Used: 0-10 Numeric Aggravating: Nothing Alleviating: Nothing - Additional Pertinent History Primary Care Physician: [id number] - Allergy/Home Medications Allergies/Adverse Reactions: Allergies Allergy/AdvReac Type Severity Reaction Status Date / Time No Known Allergies Allergy Verified 02/08/19 23:52 PMH/Surg Hx/FS Hx/Imm Hx Endocrine/Hematology History: Reports: Hx Thyroid Disease - hypo Cardiovascular History: Denies: Hx Pacemaker/ICD, Other Cardiovascular Problems/Disorders Respiratory History: Denies: Hx Sleep Apnea GI History: Reports: Hx Hiatal Hernia - for years, Other GI Disorders - gets esophagus stretched-DIFFICULTY SWALLOWING History: Denies: Other Problems/Disorders Musculoskeletal History: Reports: Hx Arthritis - fingers, Other Musculoskeletal History - degenerative bone disease Sensory History: Reports: Hx Contacts or Glasses - for reading Denies: Hx Deafness, Hx Hearing Aid Opthamlomology History: Reports: Hx Contacts or Glasses - for reading Neurological History: Denies: Other Neuro Impairments/Disorders Psychiatric History: Reports: Hx Anxiety - ON MEDICATION FOR, Hx Depression - ON MEDICATION FOR - Cancer History Hx Chemotherapy: No - Surgical History Surgery Procedure, Year, and Place: LEFT FOOT SURGERY-2019. APPENDECTOMY-AGE 38 Hx Anesthesia Reactions: No Infectious Disease History: No Infectious Disease History: Denies: Traveled Outside the [place] in Last 30 Days - Family History Known Family History: Negative: Diabetes - Social History Alcohol Use: Rare Hx Substance Use: No Substance Use Type: Reports: None Hx Tobacco Use: Yes Smoking Status (MU): Heavy Every Day Tobacco Smoker Amount Used/How Often: 1ppd 40 years Have You Smoked in the Last Year: Yes Review of Systems Positive: Fatigue Positive: Blurred Vision Positive: Chest Pain Gastrointestinal: Negative - decreased appetite Neurological: Negative - facial droop, facial weakness, forehead numbness, Other - left sided facial numbness, burning sensation and tingliness and pain in both his legs, right foot numbness, dizziness, light headedness, confusion Negative: Headache All Other Systems Reviewed And Are Negative: Yes Physical Exam - Summary Physical Exam Summary: Constitutional: Well-developed, Well-nourished, Alert. (-) Distressed Skin: Warm, Dry HENT: Normocephalic; Atraumatic Eyes: Conjunctiva normal. No nystagmus. Neck: Musculoskeletal ROM normal neck. (-) JVD, (-) Stridor, (-) Tracheal deviation Cardio: Rhythm regular, rate normal, Heart sounds normal; Intact distal pulses; The pedal pulses are 2+ and symmetric. Radial pulses are 2+ and symmetric. (-) Murmur Pulmonary/Chest wall: Effort normal. (-) Respiratory distress, (-) Wheezes, (-) Rales Abd: Soft, (-) tenderness, (-) Distension, (-) Guarding, (-) Rebound Musculoskeletal: (-) Edema. Orthotic in place on left foot Lymph: (-) Cervical adenopathy Neuro: Alert, Oriented x3. No focal deficits. Psych: Mood and affect Normal GCS: 15 Triage Information Reviewed: Yes Vital Signs On Initial Exam: Initial Vitals Temp Pulse Resp BP Pulse Ox 98.1 F 102 18 132/97 99 03/16/19 12:36 03/16/19 12:36 03/16/19 12:36 03/16/19 12:36 03/16/19 12:36 Vital Signs Reviewed: Yes Procedures - Sedation Patient Received Moderate/Deep Sedation with Procedure: No Diagnostics - Vital Signs Vital Signs Temp Pulse Resp BP Pulse Ox 03/16/19 14:40 98.5 F 85 18 136/89 97 03/16/19 12:36 98.1 F 102 18 132/97 99 - Laboratory Result Diagrams: 03/16/19 16:18 03/16/19 16:18 Lab Statement: Any lab studies that have been ordered have been reviewed, and results considered in the medical decision making process. - CT Brain CT Interpretation Completed By: Radiologist Summary of CT Findings: 1. No acute intracranial abnormality identified (MRI is more sensitive for acute infarct). 2. Mild chronic small vessel scanner disease is likely. ED physician has reviewed this report. - EKG 1722 Cardiac Rate: NL - 90 BPM EKG Rhythm: Sinus Rhythm Summary of EKG Findings: Dr. Church has reviewed and interpreted this EKG. Re-Evaluation - Re-Evaluation First Eval Re-Evaluation Time: 17:59 Comment: patient agrees to discharge and will follow up with Dr. Martinez Course/Dx - Course Course Of Treatment: 58 y/o M complains intermittent episodes of neurological symptoms that started several days ago. Patient had an episode several days ago at night while he was sleeping during which he was unable to move or figure out where he was. Patient states this episode lasted 10 minutes. Patient states he also rolled off the edge of the bed that same night. Patient states that several days after that, he had a difficult time focusing and keeping his balance. Patient states he has had several similar episodes after the first one during which nothing makes sense to him, he feels very foggy, and he is unable to figure out where he is. Patient reports left sided facial numbness, burning sensation and tingliness and pain in both his legs, right foot numbness, blurred vision, dizziness, light headedness. This morning, he woke up and was unable to bend his fingers because they "like they were full of concrete. No headache, facial droop, facial weakness, forehead numbness. He additionally notes intermittent chest pain for several weeks. No hx tick bites. No hx Lyme disease. Patient states that he has been seeing orthopedics after injuring his left foot. Upon exam, the patient has no focal deficis, no nystagmus. Orthotic in place on left foot. Bloodwork results with no significant abnormalities except for RBC 4.09, Hgb 13.33, Hct 39, MCH 32, platelet 465, MPV 5.8,. Rheumatoid factor <10. An EKG shows sinus rhythm [address] Brain shows per radiologist: 1. No acute intracranial abnormality identified (MRI is more sensitive for acute infarct). 2. Mild chronic small vessel scanner disease is likely. Dr. Martinez, neurology, came to the ED to see the patient. He states the patient can follow up with him at his office. Patient will be discharged home with follow up from Dr. Martinez at the first available appointment. Patient was instructed to return to Emergency Department for new or worsening symptoms. Patient understands and is agreeable to this plan. - Diagnoses Provider Diagnoses: Dizziness, Paresthesia - Physician Notifications Discussed Care Of Patient With: Jose M Martinez Time Discussed With Above Provider: 16:55 Instructed by Provider To: MD Will See In ED Discharge ED - Sign-Out/Discharge Documenting (check all that apply): Patient Departure - Discharge Plan Condition: Stable Disposition: HOME Patient Education Materials: Dizziness (ED) Referrals: Jose M Martinez MD [Medical Doctor] - Additional Instructions: Follow up with Dr. Martinez at the first available appointment. Return to the Emergency Department for new or worsening symptoms. - Attestation Statements Document Initiated by Austin: Yes Documenting Scribe: Brandie Cruz Provider For Whom Austin is Documenting (Include Credential): DO Olivier Ramirezibrhoda Attestation: Brandie Turner scribed for Joseph Church DO on 03/16/19 at 1757. Status of Scribe Document: Ready
[2019-03-16 16:31] LABS: ABS Basophils 0.1 10^3/ul (0-0.2); ABS Eosinophils 0.3 10^3/ul (0-0.6); ABS Lymphocytes 2.9 10^3/ul (1.0-4.8); ABS Monocytes 0.8 10^3/ul (0-0.8); ABS Neutrophils 4.9 10^3/ul (1.5-7.7); Eosinophil % 3.3 %; Hematocrit 39 % (42-52); Hemoglobin 13.3 g/dL (14.0-18.0); Lymphocyte % 32.6 %; Mean Corpuscular HGB Conc 34 g/dL (31-36); Mean Corpuscular Hemoglobin 32 pg (27-31); Mean Corpuscular Volume 94 fL (80-94); Mean Platelet Volume 5.8 fL (7.4-10.4); Platelet Count 465 10^3/uL (150-450); Red Blood Count 4.09 10^6 /uL (4.18-5.48); Red Cell Distribution Width 15 % (10-15)
[2019-03-16 16:53] LABS: ALT 7 U/L (7-52); AST 15 U/L (13-39); Albumin/Globulin Ratio 1.5 (1-3); Alkaline Phosphatase 84 U/L (34-104); Anion Gap 5 mmol/L (2-11); BUN/Creatinine Ratio 18.1 (8-20); Blood Urea Nitrogen 17 mg/dL (6-24); C Reactive Protein 3.57 mg/L (<8.01); CO2 Carbon Dioxide 27 mmol/L (22-32); Calcium 9.1 mg/dL (8.6-10.3); Chloride 104 mmol/L (101-111); EGFR African American 99.1 (>60); EGFR Non-African American 81.9 (>60); Globulin 2.7 g/dL (2-4); Glucose 98 mg/dL (70-100); Potassium 4.3 mmol/L (3.5-5.0); Sodium 136 mmol/L (135-145); Total Protein 6.7 g/dL (6.4-8.9); Troponin I 0.01 ng/mL (<0.03)
[2019-03-16 16:59] LABS: INR 0.96 (0.82-1.09)
[2019-03-16 17:32] LABS: Rheumatoid Factor < 10 IU/mL (<15)
[2019-03-16 17:55] LABS: Creatine Kinase 106 U/L (10-223)
[2019-03-16 18:06] LABS: TSH (Thyroid Stimulating Horm) 56.41 mcIU/mL (0.34-5.60)
[2019-03-16 18:16] VITALS: BP 139/103
[2019-03-16 18:22] LABS: Urine Appearance Clear; Urine Bilirubin Negative (Negative); Urine Blood Negative (Negative); Urine Color Yellow; Urine Glucose Negative (Negative); Urine Ketones Negative (Negative); Urine Nitrite Negative (Negative); Urine Protein Negative (Negative); Urine Urobilinogen Negative (Negative)
[2019-03-16 20:05] LABS: Erythrocyte Sed Rate 19 mm/Hr (0-19)
--- NOTE | 2019-03-16 20:35 | CONS ---
CONSULTATION REPORT: DATE OF CONSULT: 03/16/19 REFERRING PROVIDER: Dr. Church. LOCATION: He is in the emergency room. CHIEF COMPLAINT: Episodes of confusion, burning legs, facial numbness, fall. HISTORY OF PRESENT ILLNESS: Brant Dyer is a 58-year-old man who presented to the emergency room with a number of complaints. He says about a weeks to two weeks he has been experiencing burning in the anterior surfaces of both legs. He notes numbness of the left side of his face. He gets episodes where he feels very confused. He had one episode where he was trying to get out of bed at 3 in the morning and fell out of bed and lacerated over his left eye. In a couple of the episodes, he has been with other people and they say he just talks nonsensically. He thinks the episodes last 10 to 15 minutes. He states that they just began about two weeks ago. He also noted some chest pressure and reported to Dr. Church. He had, as part of his evaluation, a CT scan of the brain, which I reviewed. There is some hypodensity in the periventricular white matter that looks like probably chronic ischemic disease. He has no history of hypertension or diabetes, but he does not seek regular medical care. He moved to the [facility] in the last 6 months or so and just recently got a Medicaid. He does not have a primary care provider. There is no history of epilepsy or head trauma. There is no history of stroke. There is no history of diabetes. MEDICATIONS: That he takes regularly include: 1. Venlafaxine. 2. Seroquel. 3. Synthroid. 4. He was on oxycodone for a foot injury and subsequent surgery and then wound problems for which he has been treated locally. ALLERGIES: He does not have any drug allergies. FAMILY HISTORY: Negative for epilepsy. SOCIAL HISTORY: He smokes a pack of cigarettes per day. He drinks alcohol occasionally. He was in the emergency room with a high blood alcohol level on . REVIEW OF SYSTEMS: Notable for depression and anxiety, chronic low back pain. No recent fevers or chills. His weight has been stable. He has chronic back pain. There is no history of cardiac, pulmonary, renal, GI, or disease. PHYSICAL EXAM: He is a bit overweight. Temperature is 98.5, blood pressure 137 /102, heart rate in the 80s and regular. Heart tones are normal. There are no murmurs. Skin is warm and dry. He has a left orthotic on his foot. There are no cervical bruits. Oral mucosa is moist and atraumatic. Neck is supple. Lungs are clear. Neurological Exam: Pupils, fundi, and eye movements are normal. Visual soriano are full to confrontation. Facial musculature is intact and symmetric. Facial sensation is intact to light touch and pin. Palate and tongue appear normal and there is no dysarthria. He has a healed laceration over his left eye. Motor exam reveals some limitation of testing of lower extremity because of pain in his low back. He also has a left orthotic boot on. He has normal strength in the right leg proximally and distally. There is no spasticity in the limbs. He has normal strength in the upper extremities proximally and distally. He has a mild sustention tremor in the hands. [id number] maneuver is normal. Reflexes are grade 2 at the upper extremities and at the knees and absent at the ankle on the right. His right plantar is flexor. Sensory exam to light touch and pin is described as less on the right arm and leg than the left. I did not attempt to ambulate him. He is alert and oriented with poor attention and concentration. Memory seems poor, and attention and concentration also seem poor. DIAGNOSTIC STUDIES/LAB DATA: Laboratory data including a CT scan also notable for a normal chemistry profile. TSH is pending. CBC today is notable for hemoglobin of 13.3 and a platelet count of 465,000 and otherwise a normal CBC. ASSESSMENT AND PLAN: Impression is that of multiple symptoms including some episodes of confusion which could potentially be seizures. He has a head CT which looked to show small vessel disease, but no history of diabetes or hypertension. However, he did not seek regular medical care. Recommend checking a vitamin B12 level as he may have a peripheral neuropathy on this exam. His TSH is pending. If those are normal, I feel he could be discharged and I can evaluate him as an outpatient with an EEG and MRI scan and follow up in my office. I advised him accordingly. I gave my impression to Dr. Church as well. [id number]/[facility] #: [id number] [facility]ITALAngi
== END 2019-03-16 18:30 | disposition home or self-care (01) ==
LOC: ED 12:35
DX: R20.0 Anesthesia of skin (principal); R42 Dizziness and giddiness; E03.9 Hypothyroidism, unspecified; F41.9 Anxiety disorder, unspecified; F32.9 Major depressive disorder, single episode, unspecified; F17.210 Nicotine dependence, cigarettes, uncomplicated; Z90.89 Acquired absence of other organs; Z79.890 Hormone replacement therapy; Z79.899 Other long term (current) drug therapy
CPT/HCPCS: 36415; 70450; 80053; 81003; 82550; 82607; 84443; 84484; 85025; 85610; 85652; 86140; 86431; 93005; 99282